=== PATIENT | female | born 1990 | race American Indian/Alaskan Native ===

== ENCOUNTER 2016-05-22 10:32 | Outpatient (CLI) | payer BC, MEDICAID | END 2016-05-22 10:33 | disposition home or self-care (01) | DX: E10.9 Type 1 diabetes mellitus without complications (principal) ==

== ENCOUNTER 2016-11-19 15:08 | Outpatient (CLI) | payer BC ==
[2016-11-19 12:48] LABS: ALBUMIN/GLOBULIN RATIO 1.3 (1.0-2.2); BASOPHILS # (AUTO) 0.1 10^3/uL (0.0-0.1); BASOPHILS % (AUTO) 1.4 %; BUN - BLOOD UREA NITROGEN 14 mg/dL (6-20); CALCIUM 8.8 mg/dL (8.5-10.3); CARBON DIOXIDE - CO2 28 mmol/L (21-32); CHLORIDE 103 mmol/L (101-111); CHOL/HDL RATIO 2.9 (<4.4); CHOLESTEROL 141 mg/dL; CREATININE 0.4 mg/dL (0.4-1.0); EOSINOPHILS # (AUTO) 0.1 10^3/uL (0.0-0.7); EOSINOPHILS % (AUTO) 1.3 %; GFR - MDRD 191 (>89); GLUCOSE 148 mg/dL (70-100); HCT - HEMATOCRIT 39.2 % (37.0-47.0); HDL CHOLESTEROL 48 mg/dL; HGB - HEMOGLOBIN 13.3 g/dL (12.0-16.0); LDL/HDL RATIO 1.8 (<4.4); LYMPHOCYTES # (AUTO) 2.3 10^3/uL (1.5-3.5); LYMPHOCYTES % (AUTO) 38.2 %; MEAN CORPUSCULAR HEMOGLOBIN 30.5 pg (27.0-31.0); MEAN CORPUSCULAR VOLUME 89.5 fL (81.0-99.0); MEAN PLATELET VOLUME 9.7 fL (7.9-10.8); MONOCYTES # (AUTO) 0.3 10^3/uL (0.0-1.0); MONOCYTES % (AUTO) 5.7 %; NEUTROPHILS # (AUTO) 3.2 10^3/uL (1.5-6.6); NEUTROPHILS % (AUTO) 53.4 %; NUCLEATED RED BLOOD CELLS AUTO 0.1 /100WBC; POTASSIUM 4.1 mmol/L (3.5-5.0); RED BLOOD COUNT 4.37 10^6/uL (4.20-5.40); RED CELL DISTRIBUTION WIDTH 12.6 % (12.0-15.0); SODIUM 137 mmol/L (135-145); TOTAL PROTEIN 7.2 g/dL (6.7-8.2); TRIGLYCERIDES 45 mg/dL; VLDL CHOLESTEROL 9 mg/dL
[2016-11-19 12:51] LABS: HEMOGLOBIN A1C 0.64 g/dL
== END 2016-11-19 15:09 | disposition home or self-care (01) ==
LOC: LAB.WCP 15:08
PROVIDERS: ATTEND Family Medicine
DX: Z00.00 Encounter for general adult medical examination without abnormal findings (principal)
CPT/HCPCS: 36415; 80053; 80061; 83036; 84443; 85025

== ENCOUNTER 2017-03-01 08:02 | Outpatient (CLI) | payer BC ==
[2017-03-01 14:13] LABS: HEMOGLOBIN A1C 0.64 g/dL
[2017-03-01 14:19] LABS: ALBUMIN/GLOBULIN RATIO 1.4 (1.0-2.2); BILIRUBIN,TOTAL 1.1 mg/dL (0.2-1.0); CALCIUM 8.9 mg/dL (8.5-10.3); CREATININE 0.6 mg/dL (0.4-1.0); POTASSIUM 4.2 mmol/L (3.5-5.0); TOTAL PROTEIN 7.4 g/dL (6.7-8.2)
== END 2017-03-01 08:03 | disposition home or self-care (01) ==
LOC: LAB.WCP 08:02
PROVIDERS: ATTEND Family Medicine
DX: E10.9 Type 1 diabetes mellitus without complications (principal)
CPT/HCPCS: 36415; 80053; 83036

== ENCOUNTER 2017-06-16 11:14 | Outpatient (CLI) | payer BC | END 2017-06-16 11:15 | disposition home or self-care (01) | LOC: DI 11:14 | PROVIDERS: ATTEND Family Medicine | DX: R00.0 Tachycardia, unspecified (principal) | CPT/HCPCS: 93306 ==

== ENCOUNTER 2018-01-01 07:28 | Outpatient (CLI) | payer BC ==
[2018-01-01 12:55] LABS: HB2 TOTAL 14.7 g/dL; HEMOGLOBIN A1C 0.77 g/dL; HEMOGLOBIN A1C % 6.9 % (4.6-6.2)
[2018-01-01 13:05] LABS: ALBUMIN/GLOBULIN RATIO 1.2 (1.0-2.2); BILIRUBIN,TOTAL 0.8 mg/dL (0.2-1.0); CALCIUM 8.8 mg/dL (8.5-10.3); CREATININE 0.5 mg/dL (0.4-1.0); TOTAL PROTEIN 7.3 g/dL (6.7-8.2)
== END 2018-01-01 07:29 | disposition home or self-care (01) ==
LOC: LAB.WCP 07:28
PROVIDERS: ATTEND Family Medicine
DX: E10.9 Type 1 diabetes mellitus without complications (principal)
CPT/HCPCS: 36415; 80053; 82043; 83036

== ENCOUNTER 2018-08-27 08:00 | Outpatient (CLI) | payer BC ==
[2018-08-27 13:19] LABS: ALBUMIN 4.3 g/dL (3.2-5.5); ALBUMIN/GLOBULIN RATIO 1.3 (1.0-2.2); BILIRUBIN,TOTAL 1.5 mg/dL (0.2-1.0); CALCIUM 8.7 mg/dL (8.5-10.3); CREATININE 0.4 mg/dL (0.4-1.0); TOTAL PROTEIN 7.7 g/dL (6.7-8.2)
[2018-08-27 13:35] LABS: HEMOGLOBIN A1C 0.71 g/dL; HEMOGLOBIN A1C % 6.5 % (4.6-6.2)
== END 2018-08-27 23:59 | disposition home or self-care (01) ==
LOC: LAB.WCP 08:00
PROVIDERS: ATTEND Family Medicine
DX: E10.9 Type 1 diabetes mellitus without complications (principal)
CPT/HCPCS: 36415; 80053; 83036; 84443

== ENCOUNTER 2018-09-04 08:00 | Outpatient (CLI) | payer BC | END 2018-09-04 23:59 | disposition home or self-care (01) | LOC: LAB.WCP 08:00 | PROVIDERS: ATTEND Family Medicine | DX: Z13.89 Encounter for screening for other disorder (principal) | CPT/HCPCS: 36415; 86762 ==

== ENCOUNTER 2019-06-04 08:13 | Outpatient (CLI) | payer BC ==
[2019-06-04 12:32] LABS: ALBUMIN 3.9 g/dL (3.2-5.5); ALBUMIN/GLOBULIN RATIO 1.1 (1.0-2.2); BILIRUBIN,TOTAL 1.1 mg/dL (0.2-1.0); CALCIUM 8.7 mg/dL (8.5-10.3); CREATININE 0.6 mg/dL (0.4-1.0); HB2 TOTAL 13.7 g/dL; HEMOGLOBIN A1C 0.71 g/dL; HEMOGLOBIN A1C % 6.9 % (4.6-6.2); TOTAL PROTEIN 7.3 g/dL (6.7-8.2)
[2019-06-04 12:44] LABS: CREATININE,URINE 115.5 mg/dL; MICROALBUM/CREATININE RATIO,UR 2.6 ug/mg (<30.0); MICROALBUMIN,URINE 0.3 mg/dL (0-300.0)
[2019-06-04 12:56] LABS: BASOPHILS # (AUTO) 0.1 10^3/uL (0.0-0.1); BASOPHILS % (AUTO) 0.9 %; EOSINOPHILS % (AUTO) 0.7 %; HGB - HEMOGLOBIN 13.3 g/dL (12.0-16.0); LYMPHOCYTES # (AUTO) 1.6 10^3/uL (1.5-3.5); LYMPHOCYTES % (AUTO) 29.2 %; MEAN CORPUSCULAR HGB CONC 32.8 g/dL (32.0-36.0); MEAN CORPUSCULAR VOLUME 91.6 fL (81.0-99.0); MEAN PLATELET VOLUME 11.3 fL (7.9-10.8); MONOCYTES # (AUTO) 0.3 10^3/uL (0.0-1.0); MONOCYTES % (AUTO) 5.6 %; NEUTROPHILS # (AUTO) 3.5 10^3/uL (1.5-6.6); NEUTROPHILS % (AUTO) 63.2 %; PLT - PLATELET COUNT 225 10^3/uL (130-450); RED BLOOD COUNT 4.43 10^6/uL (4.20-5.40); RED CELL DISTRIBUTION WIDTH 12.3 % (12.0-15.0); WHITE BLOOD COUNT 5.6 x10^3/uL (4.8-10.8)
== END 2019-06-04 23:59 | disposition home or self-care (01) ==
LOC: LAB.WCP 08:13
PROVIDERS: ATTEND Physician Assistant
DX: Z00.00 Encounter for general adult medical examination without abnormal findings (principal); E10.9 Type 1 diabetes mellitus without complications
CPT/HCPCS: 36415; 80053; 82043; 82570; 83036; 84443; 85025

== ENCOUNTER 2019-12-03 07:38 | Outpatient (CLI) | payer BC ==
[2019-12-03 12:21] LABS: ALBUMIN 4.1 g/dL (3.2-5.5); ALBUMIN/GLOBULIN RATIO 1.4 (1.0-2.2); ALKALINE PHOSPHATASE 39 IU/L (42-121); ALT ALANINE AMINOTRANSFERASE 16 IU/L (10-60); AST ASPARTATE AMINOTRANSFERASE 18 IU/L (10-42); BUN - BLOOD UREA NITROGEN 12 mg/dL (6-20); CARBON DIOXIDE - CO2 26 mmol/L (21-32); CHLORIDE 98 mmol/L (101-111); CHOL/HDL RATIO 3.4 (<4.4); CHOLESTEROL 172 mg/dL; CREATININE 0.5 mg/dL (0.4-1.0); GLUCOSE 216 mg/dL (70-100); HDL CHOLESTEROL 50 mg/dL; LDL CHOLESTEROL,CALCULATED 101 mg/dL; SODIUM 134 mmol/L (135-145); TOTAL PROTEIN 7.1 g/dL (6.7-8.2); VLDL CHOLESTEROL 21 mg/dL
[2019-12-03 12:48] LABS: HB2 TOTAL 14.1 g/dL; HEMOGLOBIN A1C 0.99 g/dL; HEMOGLOBIN A1C % 8.6 % (4.6-6.2)
== END 2019-12-03 23:59 | disposition home or self-care (01) ==
LOC: LAB.WCP 07:38
PROVIDERS: ATTEND Physician Assistant
DX: E10.9 Type 1 diabetes mellitus without complications (principal)
CPT/HCPCS: 36415; 80053; 80061; 83036; 83721

== ENCOUNTER 2020-03-08 08:48 | Outpatient (CLI) | payer BC ==
[2020-03-08 13:46] LABS: HEMOGLOBIN A1c% 6.9 % (4.27-6.07)
== END 2020-03-08 23:59 | disposition home or self-care (01) ==
LOC: LAB.WCP 08:48
PROVIDERS: ATTEND Physician Assistant
DX: E10.9 Type 1 diabetes mellitus without complications (principal)
CPT/HCPCS: 36415; 83036

== ENCOUNTER 2020-05-16 07:38 | Outpatient (CLI) | payer BC | END 2020-05-16 23:59 | disposition home or self-care (01) | LOC: LAB.WCP 07:38 | PROVIDERS: ATTEND Physician Assistant Medical | DX: Z33.1 Pregnant state, incidental (principal) | CPT/HCPCS: 36415; 84702 ==

== ENCOUNTER → 2020-05-25 | Outpatient (CLI) | payer BC ==
[2020-05-26 13:28] LABS: BILIRUBIN,URINE NEGATIVE (NEGATIVE); GLUCOSE, URINE (UA) NEGATIVE (NEGATIVE); KETONES,URINE (UA) NEGATIVE (NEGATIVE); LEUKOCYTE ESTERASE, URINE NEGATIVE (NEGATIVE); NITRITE,URINE NEGATIVE (NEGATIVE); OCCULT BLOOD,URINE NEGATIVE (NEGATIVE); PH,URINE 6.5 PH (5.0-7.5); PROTEIN,URINE NEGATIVE (NEGATIVE); UROBILINOGEN,URINE 0.2 (NORMAL) E.U./dL (NORMAL)
[2020-05-26 13:38] LABS: CLARITY,URINE CLEAR (CLEAR)
[2020-05-26 13:39] LABS: BACTERIA,URINE Rare /HPF (None Seen); RBC,URINE None Seen /HPF (0-5); SQUAMOUS EPITHELIAL CELL,UR FEW Squamous (<= Few)
--- OUTSIDE RECORDS SUMMARY | 2020-06-01 10:56 | EXTERNAL MEDICAL SUMMARY RPT | Continuity of Care Document ---
:1990 Demographics Phone Unavailable Preferred Language Romansh Marital Status Unknown [facility] Affiliation Unknown Race Unknown Ethnic Group Unknown Author Organization [place] Address [address] [phone] Phone Care Team Providers Name Role Phone MARY Unavailable Unavailable Holiday Unavailable Unavailable Problems date description facility 2020-03-08 00:00 TYPE 1 DIABETES MELLITUS [facility] WITHOUT COMPLICATIONS 2020-03-08 08:48 TYPE 1 DIABETES MELLITUS [facility] WITHOUT COMPLICATIONS 2020-03-11 00:00:00 Encounter for other general [facility] counseling and advice on [place] [facility] contraceptive management 2020-03-11 00:00:00 THIN PREP PAP with HPV 30+YRS [facility] OLD [place] [facility] 2020-03-11 00:00:00 Encounter for contraceptive [facility] management, unspecified [place] [facility] 2020-03-11 00:00:00 Health-related behavior [facility] [place] [facility] 2020-03-11 00:00:00 Tobacco use and exposure [facility] [place] [facility] 2020-03-11 00:00:00 [facility] [place] [facility] 2020-03-11 00:00:00 [facility] 2020-03-11 00:00:00 Contraception care management [facility] [place] [facility] 2020-03-11 00:00:00 Alcohol use [facility] [place] [facility] 2020-03-11 00:00:00 Tobacco smoking status NHIS [facility] [place] [facility] 2020-05-12 00:00:00 examination or test, [facility] positive result [place] [facility] 2020-05-12 00:00:00 hCG, Serum, [facility] [place] [facility] 2020-05-12 00:00:00 Encounter for test, [facility] result positive [place] [facility] 2020-05-12 00:00:00 state, incidental [facility] [place] [facility] 2020-05-12 00:00:00 test positive [facility] [place] [facility] 2020-05-12 00:00:00 [facility] [place] [facility] 2020-05-16 00:00 STATE, INCIDENTAL [facility] 2020-05-16 07:38 STATE, INCIDENTAL [facility] 2020-05-25 00:00:00 US OB <14 WEEKS [facility] [place] [facility] 2020-05-25 00:00:00 US TRANSVAGINAL, OB [facility] [place] [facility] 2020-05-25 00:00:00 Urinalysis with Microscopic [facility] Exam, Culture in Indicated [place] [facility] 2020-05-25 00:00:00 HGBA1C [facility] [place] [facility] 2020-05-25 00:00:00 TSH [facility] [place] [facility] 2020-05-25 00:00:00 Health-related behavior [facility] [place] [facility] 2020-05-25 00:00:00 Tobacco use and exposure [facility] [place] [facility] 2020-05-25 00:00:00 Exercise [facility] [place] [facility] 2020-05-25 00:00:00 Never smoker [facility] [place] [facility] 2020-05-25 00:00:00 Employment detail [facility] [place] [facility] 2020-05-25 00:00:00 Alcohol use [facility] [place] [facility] 2020-05-25 00:00:00 Tobacco smoking status NHIS [facility] [place] [facility] 2020-05-26 00:00 ENCOUNTER FOR TEST, [facility] RESULT POSITIVE Allergies date description facility PIPERACILLIN-TAZOBACTAM [facility] penicillin * [facility] sulf[facility] drug [facility] No known allergies [facility] [place] PERTUSSIS VACCINE,ADSORBED [facility] No Known Medication Allergies [facility] HCl * [facility] oxycodone terephthalate * [facility] Penicillins [facility] aspirin [facility] clarithromycin [facility] shellfish derived [facility] Medications date description facility 2020-05-25 00:00:00 [facility] [place] [facility] 2020-05-25 00:00:00 [facility] [place] [facility] 2020-05-25 00:00:00 [id number] [facility] [place] [facility] Procedures date description facility 2020-03-11 00:00:00 IUD REMOVAL [facility] Prim [facility] [place] [facility] date description facility 2020-03-11 00:00:00 THIN PREP PAP with HPV 30+YRS [facility] [place] [facility] date description facility 2020-03-11 00:00[facility] [place] [facility] date description facility 2020-05-12 00:00:00 hCG, Serum, Quantitative [facility] [place] [facility] date description facility 2020-05-12 00:00:[facility] [place] [facility] date description facility 2020-05-25 00:00:00 Urinalysis with Microscopic [facility] Exam, Culture in Indicated [place] [facility] date description facility 2020-05-25 00:00:00 POC CHORIONIC GONADOTROPIN [facility] ASSAY [place] [facility] date description facility 2020-05-25 00:00:00 [facility] [place] [facility] Results Social History date description facility 2020-03-11 00:00:00 Never smoker [facility] [place] [facility] date description facility 2020-05-25 00:00:00 Never smoker [facility] [place] [facility] Social History date description facility 2020-03-11 00:00:00 Never smoker [facility] [place] [facility] date description facility 2020-05-25 00:00:00 Never smoker [facility] [place] [facility] date description facility [id number]
== END ==
LOC: LAB.R 08:00
PROVIDERS: ATTEND Obstetrics & Gynecology
DX: Z32.01 Encounter for pregnancy test, result positive (principal)
CPT/HCPCS: 81001; 87086

== ENCOUNTER 2020-06-02 14:31 | Outpatient (CLI) | payer BC ==
--- NOTE | 2020-06-02 16:39 | Ultrasound Report ---
PROCEDURE: OB First Trimester w/TV INDICATIONS: POSITIVE TEST OUTSIDE/PRIOR DATING DATA: Last menstrual period (LMP): 04/01/2020. LMP-based estimated date of delivery (ETHAN): 01/06/2021. First dating scan (date and location): 06/01/2020. Estimated date of delivery (ETHAN) from first dating scan: 01/26/2021. TECHNIQUE: Real-time scanning was performed of the fetus and maternal pelvic organs, with image documentation. Endovaginal scanning was also performed to better visualize the fetus and maternal ovaries. COMPARISON: None FINDINGS: Embryo: There is a gestational sac in the uterine fundus measuring approximately 2.3 cm in mean sac diameter. Within the gestational sac there is is an embryo with a crown-rump length of 4 mm. Estimate d gestational age based on the embryo length is 6 weeks 0 days. Estimated gestational age based on th e gestational sac is 7 weeks 2 days. heart rate is detected at 92 bpm. Measurement variability in dating: +/- 4 weeks by LMP, +/- 7 days by mean sac diameter (use before 6 weeks gestation if crown-rump length not able to be measured), +/- 5 days by crown-rump length (6-12 weeks gestation). Maternal organs: Ovaries within normal limits. Limited images through the kidneys demonstrate no hy dronephrosis. IMPRESSION: Single live intrauterine gestation with estimated age of 6 weeks 0 days. heart rates are detect ed at 92 bpm which is lower than expected for this gestational age. Consider a repeat examination to reassess heart rate. Reviewed by: Obey Farah MD on 06/02/2020 4:37 PM PST Approved by: Obey Farah MD on 06/02/2020 4:37 PM PST Station ID: [id number]
== END 2020-06-02 14:32 | disposition home or self-care (01) ==
LOC: DI 14:31
PROVIDERS: ATTEND Obstetrics & Gynecology
DX: Z32.01 Encounter for pregnancy test, result positive (principal)

== ENCOUNTER 2020-06-09 08:00 | Outpatient (CLI) | payer BC ==
[2020-06-09 14:05] LABS: HEMOGLOBIN A1c% 5.9 % (4.27-6.07)
== END 2020-06-09 08:01 | disposition home or self-care (01) ==
LOC: LAB.WCP 08:00
PROVIDERS: ATTEND Obstetrics & Gynecology
DX: E10.9 Type 1 diabetes mellitus without complications (principal)
CPT/HCPCS: 36415; 83036; 84443

== ENCOUNTER 2020-06-19 19:31 | Outpatient (CLI) | payer BC | END 2020-06-19 19:32 | disposition critical access hospital (66) | LOC: EMS 19:31 | PROVIDERS: ATTEND Surgery | DX: O20.9 Hemorrhage in early pregnancy, unspecified (principal); O99.891 Other specified diseases and conditions complicating pregnancy; R42 Dizziness and giddiness; R53.1 Weakness; R11.0 Nausea; R25.2 Cramp and spasm; Z3A.01 Less than 8 weeks gestation of pregnancy | CPT/HCPCS: A0425; A0427 ==

== ENCOUNTER 2020-06-19 19:50 | Emergency (ER) | payer BC ==
[2020-06-19 20:47] LABS: BASOPHILS # (AUTO) 0.1 10^3/uL (0.0-0.1); BASOPHILS % (AUTO) 0.7 %; EOSINOPHILS # (AUTO) 0.1 10^3/uL (0.0-0.7); EOSINOPHILS % (AUTO) 1.2 %; HGB - HEMOGLOBIN 9.2 g/dL (12.0-16.0); LYMPHOCYTES # (AUTO) 1.1 10^3/uL (1.5-3.5); LYMPHOCYTES % (AUTO) 12.7 %; MEAN CORPUSCULAR HEMOGLOBIN 31.2 pg (27.0-31.0); MEAN CORPUSCULAR HGB CONC 33.5 g/dL (32.0-36.0); MEAN CORPUSCULAR VOLUME 93.2 fL (81.0-99.0); MEAN PLATELET VOLUME 10.3 fL (7.9-10.8); MONOCYTES # (AUTO) 0.4 10^3/uL (0.0-1.0); MONOCYTES % (AUTO) 4.9 %; NEUTROPHILS # (AUTO) 6.7 10^3/uL (1.5-6.6); NEUTROPHILS % (AUTO) 80.1 %; PLT - PLATELET COUNT 177 10^3/uL (130-450); RED BLOOD COUNT 2.95 10^6/uL (4.20-5.40); WHITE BLOOD COUNT 8.3 x10^3/uL (4.8-10.8)
[2020-06-19 21:01] LABS: ALBUMIN 3.3 g/dL (3.2-5.5); ALBUMIN/GLOBULIN RATIO 1.3 (1.0-2.2); CALCIUM 7.9 mg/dL (8.5-10.3); CREATININE 0.4 mg/dL (0.4-1.0); TOTAL PROTEIN 5.8 g/dL (6.7-8.2)
[2020-06-19 21:02] LABS: INR 1.3 (0.8-1.2); PT - PROTHROMBIN TIME 14.3 secs (9.9-12.6)
[2020-06-19 21:10] LABS: PARTIAL THROMBOPLASTIN TIME 24.8 secs (24.9-33.3)
[2020-06-19] MEDS ORDERED: ACETAMINOPHEN 325 MG TABLET PO STA (21:51)
--- NOTE | 2020-06-19 21:54 | ED Physician Documentation ---
PD HPI ABD PAIN - Stated complaint Stated Complaint: ABD PX - Chief complaint Chief Complaint: Abd Pain - History obtained from History obtained from: Patient - Treatment prior to arrival Treatment prior to arrival: 30-year-old G3, P1 at estimated 7 weeks gestation by dates, also with history of diabetes p/w vaginal bleeding starting at 3 PM today and passage of large clots with cramping mild constant nonradiating lower abdominal pain radiating to the groin. Patient denies urinary symptoms, fevers, discharge. she states she had u/s by OB Dr. Ferreira earlier in week showing no heart tones. Review of Systems Ten Systems: 10 systems reviewed and negative Constitutional: denies: Fever, Chills GI: reports: Abdominal Pain. denies: Nausea, Vomiting : reports: Vaginal bleeding. denies: Dysuria Neurologic: reports: Generalized weakness, Other (dizziness) PD PAST MEDICAL HISTORY - Past Medical History Past Medical History: No Cardiovascular: Other Endocrine/Autoimmune: Type 1 diabetes Other Past Medical History: Rapid HR - Past Surgical History Past Surgical History: Yes General: Cholecystectomy HEENT: Other - Present Medications Home Medications: Ambulatory Orders Medication Instructions Recorded Confirmed Insulin Aspart [NovoLOG] 5 units SUBQ TID 06/19/20 06/19/20 Levemir 16 units SUBQ QPM 06/19/20 Metoprolol Tartrate [Lopressor] 25 mg PO DAILY 06/19/20 06/19/20 - Allergies Allergies/Adverse Reactions: Allergies Allergy/AdvReac Type Severity Reaction Status Date / Time penicillin * [penicillin] Allergy Intermediate Rash Verified 06/19/20 20:08 - Social History Does the pt smoke?: No Smoking Status: Never smoker Does the pt drink ETOH?: No Does the pt have substance abuse?: No - Immunizations Immunizations are current?: Yes - POLST Patient has POLST: No PD ED PE NORMAL - Vitals Vital signs reviewed: Yes - General General: Alert and oriented X 3, No acute distress, Well developed/nourished - HEENT HEENT: Atraumatic, PERRL, EOMI, Moist mucous membranes - Neck Neck: Supple, no meningeal sign - Cardiac Cardiac: RRR - Respiratory Respiratory: No respiratory distress, Clear bilaterally - Abdomen Abdomen: Non tender, Non distended, Other (discomfort to suprapubic palpation) - Female Female : Other (external vaginal exam with small amount of light red blood) - Rectal Rectal: Deferred - Back Back: No CVA TTP - Derm Derm: Normal color - Extremities Extremities: No deformity, No edema - Neuro Neuro: Alert and oriented X 3, online project manager 2-12 intact, No motor deficit, No sensory deficit - Psych Psych: Normal mood, Normal affect Results - Vitals Vitals: Vital Signs - 24 hr 06/19/20 06/19/20 06/19/20 20:00 20:04 20:05 Temperature 36.9 C Heart Rate 93 86 Heart Rate [ 88 Sitting] Heart Rate [ 93 Supine] Respiratory 14 15 Rate Blood Pressure 112/75 123/80 Blood Pressure 123/80 [Sitting] Blood Pressure 112/75 [Supine] O2 Saturation 100 100 06/19/20 06/19/20 06/19/20 20:10 20:40 21:52 Temperature Heart Rate 95 92 92 Heart Rate [ Sitting] Heart Rate [ Supine] Respiratory 15 15 16 Rate Blood Pressure 123/8 L 100/73 109/66 Blood Pressure [Sitting] Blood Pressure [Supine] O2 Saturation 100 100 100 06/19/20 06/19/20 06/19/20 22:38 23:10 23:25 Temperature 36.9 C 36.5 C Heart Rate 92 86 86 Heart Rate [ Sitting] Heart Rate [ Supine] Respiratory 14 14 16 Rate Blood Pressure 124/68 110/68 118/71 Blood Pressure [Sitting] Blood Pressure [Supine] O2 Saturation 100 100 100 06/19/20 23:56 Temperature 36.7 C Heart Rate 87 Heart Rate [ Sitting] Heart Rate [ Supine] Respiratory 15 Rate Blood Pressure 118/71 Blood Pressure [Sitting] Blood Pressure [Supine] O2 Saturation 100 Oxygen O2 Source Room air - Labs Labs: Laboratory Tests 06/19/20 06/19/20 06/19/20 20:36 20:36 20:36 WBC 8.3 RBC 2.95 L Hgb 9.2 L Hct 27.5 L MCV 93.2 MCH 31.2 H MCHC 33.5 RDW 12.0 Plt Count 177 MPV 10.3 Neut # (Auto) 6.7 H Lymph # (Auto) 1.1 L Leon # (Auto) 0.4 Eos # (Auto) 0.1 Baso # (Auto) 0.1 Absolute Nucleated RBC 0.00 Nucleated RBC % 0.0 PT INR APTT Sodium 130 L Potassium 3.7 Chloride 99 L Carbon Dioxide 23 Anion Gap 8.0 BUN 8 Creatinine 0.4 Estimated GFR (MDRD) 186 Glucose 208 H Calcium 7.9 L Total Bilirubin 1.0 AST 15 ALT 10 Alkaline Phosphatase 23 L Total Protein 5.8 L Albumin 3.3 Globulin 2.5 Albumin/Globulin Ratio 1.3 Lipase 19 L HCG, Quant Urine Color Urine Clarity Urine pH Ur Specific [place] Urine Protein Urine Glucose (UA) Urine Ketones Urine Occult Blood Urine Nitrite Urine Bilirubin Urine Urobilinogen Ur Leukocyte Esterase Urine RBC Urine WBC Ur Squamous Epith Cells Urine Bacteria Urine Mucus Ur Microscopic Review Urine Culture Comments Blood Type AB POSITIVE Antibody Screen NEGATIVE 06/19/20 06/19/20 06/19/20 20:36 20:36 22:04 WBC RBC Hgb Hct MCV MCH MCHC RDW Plt Count MPV Neut # (Auto) Lymph # (Auto) Leon # (Auto) Eos # (Auto) Baso # (Auto) Absolute Nucleated RBC Nucleated RBC % PT 14.3 H INR 1.3 H APTT 24.8 L Sodium Potassium Chloride Carbon Dioxide Anion Gap BUN Creatinine Estimated GFR (MDRD) Glucose Calcium Total Bilirubin AST ALT Alkaline Phosphatase Total Protein Albumin Globulin Albumin/Globulin Ratio Lipase HCG, Quant 911.43 Urine Color YELLOW Urine Clarity CLEAR Urine pH 6.0 Ur Specific [place] 1.015 Urine Protein NEGATIVE Urine Glucose (UA) NEGATIVE Urine Ketones >=80 H Urine Occult Blood LARGE H Urine Nitrite NEGATIVE Urine Bilirubin NEGATIVE Urine Urobilinogen 0.2 (NORMAL) Ur Leukocyte Esterase NEGATIVE Urine RBC TNTC H Urine WBC 0-3 Ur Squamous Epith Cells RARE Squamous Urine Bacteria Rare Urine Mucus Few Strands Ur Microscopic Review INDICATED Urine Culture Comments NOT INDICATED Blood Type Antibody Screen PD MEDICAL DECISION MAKING - ED course ED course: 30-year-old diabetic woman G3, P1 currently at estimated 7 weeks gestation by dates presents with vaginal bleeding starting at 3 PM today and passage of large clots with cramping mild constant nonradiating lower abdominal pain radiating to the groin. Patient denies urinary symptoms, fevers, discharge. Unsure of her blood type. On examination she has a soft nontender abdomen and no CVA tenderness, external vaginal exam with small amount of blood. OB ultrasound showed no retained products of conception and a large amount of apparent embryonic tissue was removed from the vaginal vault upon completion of transvaginal ultrasound. Completed at this time. hCG downtrending. Hemoglobin dropped from 13.3-9.2. Will discuss with Dr. Ferreira, patient's OB. Blood pressure holding steady in the 110s and patient is asymptomatic at this time. patient without further bleeding after passage of large amount of tissue after ultrasound. d/w Dr. Centeno, guest relations officer for ob - patient with improvement in BP, asymptomatic at present. given that there is possible small amount of retained tissue still on ultrasound, plan to give 600mcg misoprostol prior to discharge. strict bleeding precautions and ob return precautions given. Patient will f/u for appointment in clinic tomorrow. Note that patient felt nauseous and had one episode nbnb n/v after misoprostol, improving with zofran odt. patient was monitored and subsequently felt better, requesting to go home. return precautions again reinforced. shared decision made to go forward with discharge at this time. Departure - Departure Disposition: 01 Home, Self Care Clinical Impression: Spontaneous , Vaginal bleeding, Abdominal cramping Condition: Good Instructions: Miscarriage Emotions, Miscarriage Dc Follow-Up: Kristyn Ferreira MD [Provider Admit Priv/Credential] - Comments: You were seen in the emergency department for miscarriage. You were given misoprostol, a medication to help clean your uterus of leftover tissues. Return to the emergency department immediately if you are having heavy bleeding (soaking >1pad every couple hours), fevers, or severe pain. Return for any new or worsening symptoms or other concerns. Follow-up tomorrow for a clinic appointment with your OB Dr. Ferreira. Discharge Date/Time: 06/19/20 23:58
--- NOTE | 2020-06-19 21:59 | Ultrasound Report ---
PROCEDURE: OB First Trimester w/TV INDICATIONS: vag bleeding OUTSIDE/PRIOR DATING DATA: Last menstrual period (LMP): 04/01/2020. LMP-based estimated date of delivery (ETHAN): 01/06/2021. First dating scan (date and location): 06/01/2020. Estimated date of delivery (ETHAN) from first dating scan: 01/26/2021 TECHNIQUE: Real-time scanning was performed of the fetus and maternal pelvic organs, with image documentation. Endovaginal scanning was also performed to better visualize the fetus and maternal ovaries. COMPARISON: 06/02/2020 ultrasound. FINDINGS: Echogenic material within the endometrium is present, which measures 16 mm in thickness. No evidence of intrauterine gestation. Small cystic focus within the endometrium measuring 34 mm. Mat ernal ovaries are within normal limits. Small amount of free fluid adjacent to uterine fundus. IMPRESSION: demise. No intrauterine gestation. Reviewed by: Edie Guevara MD on 06/19/2020 9:58 PM PST Approved by: Edie Guevara MD on 06/19/2020 9:58 PM PST Station ID: [id number]
[2020-06-19 22:13] LABS: BILIRUBIN,URINE NEGATIVE (NEGATIVE); GLUCOSE, URINE (UA) NEGATIVE (NEGATIVE); KETONES,URINE (UA) >=80 mg/dL (NEGATIVE); LEUKOCYTE ESTERASE, URINE NEGATIVE (NEGATIVE); NITRITE,URINE NEGATIVE (NEGATIVE); OCCULT BLOOD,URINE LARGE (NEGATIVE); PROTEIN,URINE NEGATIVE (NEGATIVE); UROBILINOGEN,URINE 0.2 (NORMAL) E.U./dL (NORMAL)
[2020-06-19 22:21] LABS: CLARITY,URINE CLEAR (CLEAR)
[2020-06-19 22:22] LABS: BACTERIA,URINE Rare /HPF (None Seen); MUCUS,URINE Few Strands; RBC,URINE TNTC /HPF (0-5); SQUAMOUS EPITHELIAL CELL,UR RARE Squamous (<= Few)
[2020-06-19] MEDS ORDERED: miSOPROStoL 200 MCG TABLET PO STA (23:13)
[2020-06-19] MEDS ORDERED: ONDANSETRON ODT 4 MG TABLET TL STA (23:35)
[2020-06-19 23:42] VITALS: BP 118/71
== END 2020-06-19 23:58 | disposition home or self-care (01) ==
LOC: EDUNIT# → ED 19:50 → SUPCPDRO 19:50 → ED 23:57
DX: O03.9 Complete or unspecified spontaneous abortion without complication (principal); R11.2 Nausea with vomiting, unspecified; T47.1X5A Adverse effect of other antacids and anti-gastric-secretion drugs, initial encounter; Y92.538 Other ambulatory health services establishments as the place of occurrence of the external cause; E10.9 Type 1 diabetes mellitus without complications
CPT/HCPCS: 36415; 76801; 76817; 80053; 81001; 83690; 84702; 85025; 85610; 85730; 86850; 86900; 86901; 99284; A9270; Q0162; 81003; 87086

== ENCOUNTER 2020-12-14 08:00 | Outpatient (CLI) | payer BC ==
[2020-12-14 11:56] LABS: BASOPHILS # (AUTO) 0.1 10^3/uL (0.0-0.1); BASOPHILS % (AUTO) 1.1 %; EOSINOPHILS # (AUTO) 0.1 10^3/uL (0.0-0.7); EOSINOPHILS % (AUTO) 1.6 %; HCT - HEMATOCRIT 40.3 % (37.0-47.0); LYMPHOCYTES # (AUTO) 2.1 10^3/uL (1.5-3.5); LYMPHOCYTES % (AUTO) 32.6 %; MEAN CORPUSCULAR HEMOGLOBIN 29.5 pg (27.0-31.0); MEAN CORPUSCULAR HGB CONC 32.3 g/dL (32.0-36.0); MEAN CORPUSCULAR VOLUME 91.4 fL (81.0-99.0); MEAN PLATELET VOLUME 11.3 fL (7.9-10.8); MONOCYTES # (AUTO) 0.4 10^3/uL (0.0-1.0); MONOCYTES % (AUTO) 5.9 %; NEUTROPHILS # (AUTO) 3.7 10^3/uL (1.5-6.6); NEUTROPHILS % (AUTO) 58.5 %; PLT - PLATELET COUNT 232 10^3/uL (130-450); RED BLOOD COUNT 4.41 10^6/uL (4.20-5.40); RED CELL DISTRIBUTION WIDTH 12.5 % (12.0-15.0); WHITE BLOOD COUNT 6.3 x10^3/uL (4.8-10.8)
[2020-12-14 12:10] LABS: CREATININE,URINE 118.2 mg/dL; MICROALBUM/CREATININE RATIO,UR 3.4 ug/mg (<30.0); MICROALBUMIN,URINE 0.4 mg/dL (0-300.0)
[2020-12-14 12:18] LABS: ESTIMATED AVERAGE GLUCOSE 131 mg/dL (70-100); HEMOGLOBIN A1c% 6.2 % (4.27-6.07)
[2020-12-14 12:24] LABS: THYROID STIMULATING HORMONE 2.93 uIU/mL (0.34-5.60)
[2020-12-14 12:27] LABS: ALBUMIN 4.3 g/dL (3.2-5.5); ALBUMIN/GLOBULIN RATIO 1.3 (1.0-2.2); ALKALINE PHOSPHATASE 37 IU/L (42-121); ALT ALANINE AMINOTRANSFERASE 13 IU/L (10-60); AST ASPARTATE AMINOTRANSFERASE 16 IU/L (10-42); BUN - BLOOD UREA NITROGEN 13 mg/dL (6-20); CALCIUM 9.3 mg/dL (8.5-10.3); CARBON DIOXIDE - CO2 24 mmol/L (21-32); CHLORIDE 105 mmol/L (101-111); CHOL/HDL RATIO 3.1 (<4.4); CHOLESTEROL 179 mg/dL; CREATININE 0.6 mg/dL (0.4-1.0); GFR - MDRD 117 (>89); GLUCOSE 121 mg/dL (70-100); HDL CHOLESTEROL 57 mg/dL; LDL CHOLESTEROL,CALCULATED 112 mg/dL; POTASSIUM 4.1 mmol/L (3.5-5.0); SODIUM 137 mmol/L (135-145); TOTAL PROTEIN 7.6 g/dL (6.7-8.2); TRIGLYCERIDES 52 mg/dL; VLDL CHOLESTEROL 10 mg/dL
== END 2020-12-14 23:59 | disposition home or self-care (01) ==
LOC: LAB.WCP 08:00
PROVIDERS: ATTEND Family Medicine
DX: E10.9 Type 1 diabetes mellitus without complications (principal)
CPT/HCPCS: 36415; 80053; 80061; 82043; 82570; 83036; 83721; 84443; 85025

== ENCOUNTER 2021-01-24 08:00 | Outpatient (CLI) | payer BC ==
[2021-01-24 18:10] LABS: HCG,QUALITATIVE BLOOD POSITIVE
== END 2021-01-24 23:59 | disposition home or self-care (01) ==
LOC: LAB.WCP 08:00
PROVIDERS: ATTEND Family Medicine
DX: N91.2 Amenorrhea, unspecified (principal)
CPT/HCPCS: 36415; 84703

== ENCOUNTER 2021-02-10 10:00 | Outpatient (CLI) | payer BC ==
[2021-02-10 17:28] LABS: BILIRUBIN,URINE NEGATIVE (NEGATIVE); GLUCOSE, URINE (UA) NEGATIVE (NEGATIVE); KETONES,URINE (UA) NEGATIVE (NEGATIVE); LEUKOCYTE ESTERASE, URINE SMALL (NEGATIVE); NITRITE,URINE POSITIVE (NEGATIVE); OCCULT BLOOD,URINE NEGATIVE (NEGATIVE); PROTEIN,URINE NEGATIVE (NEGATIVE); UROBILINOGEN,URINE 0.2 (NORMAL) E.U./dL (NORMAL)
[2021-02-10 17:31] LABS: CLARITY,URINE CLEAR (CLEAR)
[2021-02-10 17:33] LABS: BACTERIA,URINE Many /HPF (None Seen); RBC,URINE 0-5 /HPF (0-5); SQUAMOUS EPITHELIAL CELL,UR FEW Squamous (<= Few)
== END 2021-02-10 23:59 | disposition home or self-care (01) ==
LOC: LAB 10:00
PROVIDERS: ATTEND Nurse Practitioner Obstetrics & Gynecology
DX: Z32.01 Encounter for pregnancy test, result positive (principal)
CPT/HCPCS: 81001; 81003; 87086; 87181

== ENCOUNTER 2021-02-20 18:52 | Outpatient (CLI) | payer BC ==
--- NOTE | 2021-02-21 10:57 | Ultrasound Report ---
PROCEDURE: OB First Trimester w/TV INDICATIONS: POSITIVE TEST OUTSIDE/PRIOR DATING DATA: Last menstrual period (LMP): 12/21/2020. LMP-based estimated date of delivery (ETHAN): 09/27/2021. First dating scan (date and location): 02/20/2021. Estimated date of delivery (ETHAN) from first dating scan: 09/27/2021. The below data below was generated using the ultrasound derived ETHAN of 09/27/2021 TECHNIQUE: Real-time scanning was performed of the fetus and maternal pelvic organs, with image documentation. Endovaginal scanning was also performed to better visualize the fetus and maternal ovaries. COMPARISON: None from current . FINDINGS: Embryo: There is an intrauterine with a gestational sac, yolk sac, and pole identifi ed. The crown-rump length measures up to 2.1 cm corresponding to a gestational age of 8 weeks 5 days. There is heart motion with a rate of 176 bpm. There is an adjacent hypoechoic heterogeneous c rescentic collection along the gestational sac measuring approximately 3.2 x 1 x 2.0 cm suggestive of a subchorionic hematoma. Measurement variability in dating: +/- 4 weeks by LMP, +/- 7 days by mean sac diameter (use before 6 weeks gestation if crown-rump length not able to be measured), +/- 5 days by crown-rump length (6-12 weeks gestation). Maternal organs: Ovaries appear within normal size limits with small follicles demonstrated bilatera lly. No adnexal masses.. IMPRESSION: 1. Single living intrauterine with cartilage gestational age of 8 weeks 5 days correspondin g to an estimated delivery date of 09/27/2021, concordant with patient's dates by LMP. 2. Heterogeneous perigestational collection compatible with a subchorionic hematoma. Recommend clinic al follow-up and and a repeat study if indicated. Reviewed by: Sukhdeep Oglesby MD on 02/21/2021 10:56 AM PDT Approved by: Sukhdeep Oglesby MD on 02/21/2021 10:56 AM PDT Station ID: [id number]
== END 2021-02-20 18:53 | disposition home or self-care (01) ==
LOC: DI 18:52
PROVIDERS: ATTEND Nurse Practitioner Obstetrics & Gynecology
DX: O20.9 Hemorrhage in early pregnancy, unspecified (principal); Z3A.08 8 weeks gestation of pregnancy; Z36.89 Encounter for other specified antenatal screening
CPT/HCPCS: 36415; 81001; 85025; 86592; 86762; 86787; 86803; 86850; 86900; 86901; 87086; 87340; 87389

== ENCOUNTER 2021-02-20 19:37 | Outpatient (CLI) | payer BC ==
[2021-02-20 20:04] LABS: BILIRUBIN,URINE NEGATIVE (NEGATIVE); GLUCOSE, URINE (UA) NEGATIVE (NEGATIVE); KETONES,URINE (UA) NEGATIVE (NEGATIVE); LEUKOCYTE ESTERASE, URINE NEGATIVE (NEGATIVE); NITRITE,URINE NEGATIVE (NEGATIVE); OCCULT BLOOD,URINE NEGATIVE (NEGATIVE); PROTEIN,URINE NEGATIVE (NEGATIVE); UROBILINOGEN,URINE 0.2 (NORMAL) E.U./dL (NORMAL)
[2021-02-20 20:05] LABS: BASOPHILS % (AUTO) 0.5 %; EOSINOPHILS # (AUTO) 0.1 10^3/uL (0.0-0.7); EOSINOPHILS % (AUTO) 1.2 %; HCT - HEMATOCRIT 33.6 % (37.0-47.0); HGB - HEMOGLOBIN 11.7 g/dL (12.0-16.0); LYMPHOCYTES # (AUTO) 1.9 10^3/uL (1.5-3.5); LYMPHOCYTES % (AUTO) 23.9 %; MEAN CORPUSCULAR HEMOGLOBIN 30.3 pg (27.0-31.0); MEAN CORPUSCULAR HGB CONC 34.8 g/dL (32.0-36.0); MEAN PLATELET VOLUME 10.5 fL (7.9-10.8); MONOCYTES # (AUTO) 0.5 10^3/uL (0.0-1.0); MONOCYTES % (AUTO) 6.4 %; NEUTROPHILS # (AUTO) 5.3 10^3/uL (1.5-6.6); NEUTROPHILS % (AUTO) 67.5 %; PLT - PLATELET COUNT 235 10^3/uL (130-450); RED BLOOD COUNT 3.86 10^6/uL (4.20-5.40); RED CELL DISTRIBUTION WIDTH 12.8 % (12.0-15.0); WHITE BLOOD COUNT 7.8 x10^3/uL (4.8-10.8)
[2021-02-20 20:13] LABS: BACTERIA,URINE Rare /HPF (None Seen); CLARITY,URINE CLEAR (CLEAR); RBC,URINE 0-5 /HPF (0-5); SQUAMOUS EPITHELIAL CELL,UR RARE Squamous (<= Few); WBC,URINE 0-3 /HPF (0-5)
[2021-02-20 20:14] LABS: MUCUS,URINE Few Strands
[2021-02-23 12:06] LABS: HEPATITIS B SURFACE ANTIGEN NON-REACTIVE (NON-REACTIVE); HEPATITIS C ANTIBODY NON-REACTIVE (NON-REACTIVE)
[2021-02-23 16:01] LABS: HIV AG/AB 4TH GEN NON-REACTIVE (NON-REACTIVE)
== END 2021-02-20 19:38 | disposition home or self-care (01) ==
LOC: LAB 19:37
PROVIDERS: ATTEND Nurse Practitioner Obstetrics & Gynecology
DX: Z36.89 Encounter for other specified antenatal screening (principal)
CPT/HCPCS: 36415; 81001; 85025; 86592; 86762; 86787; 86803; 86850; 86900; 86901; 87086; 87340; 87389

== ENCOUNTER 2021-03-02 08:00 | Outpatient (CLI) | payer BC ==
[2021-03-02 21:55] LABS: CHLAMYDIA TRACHOMATIS DNA NEGATIVE (NEGATIVE); NEISSERIA GONORRHOEAE DNA NEGATIVE (NEGATIVE); TRICHOMONAS VAGINALIS DNA NEGATIVE (NEGATIVE)
== END 2021-03-02 23:59 | disposition home or self-care (01) ==
LOC: LAB 08:00
PROVIDERS: ATTEND Obstetrics & Gynecology
DX: Z11.3 Encounter for screening for infections with a predominantly sexual mode of transmission (principal)
CPT/HCPCS: 87491; 87591; 87661

== ENCOUNTER 2021-03-09 07:11 | Outpatient (CLI) | payer BC ==
[2021-03-09 13:00] LABS: ESTIMATED AVERAGE GLUCOSE 131 mg/dL (70-100); HEMOGLOBIN A1c% 6.2 % (4.27-6.07)
[2021-03-10 14:20] LABS: CREATININE 24 HOUR,URINE 797 mg/24h (600-1800); CREATININE,URINE 24.6 mg/dL; TOTAL PROTEIN,URINE TIMED < 6 mg/dL; TOTAL VOLUME 24HRS,URINE 3240 mL
== END 2021-03-09 23:55 | disposition home or self-care (01) ==
LOC: LAB.WCP 07:11
PROVIDERS: ATTEND Obstetrics & Gynecology
DX: O09.899 Supervision of other high risk pregnancies, unspecified trimester (principal); O24.019 Pre-existing type 1 diabetes mellitus, in pregnancy, unspecified trimester; E10.9 Type 1 diabetes mellitus without complications
CPT/HCPCS: 36415; 82570; 83036; 84156

== ENCOUNTER 2021-03-29 11:18 | Outpatient (CLI) | payer BC ==
[2021-03-29 12:14] LABS: THYROID STIMULATING HORMONE 1.36 uIU/mL (0.34-5.60)
[2021-03-29 12:16] LABS: FREE T4 (FREE THYROXINE) 0.97 ng/dL (0.58-1.64)
[2021-03-29 12:53] LABS: ESTIMATED AVERAGE GLUCOSE 114 mg/dL (70-100); HEMOGLOBIN A1c% 5.6 % (4.27-6.07)
[2021-03-31 03:36] LABS: AGE RISK DOWN SYNDROME 1 IN 523; CIGARETTE SMOKER? NOT GIVEN; DONOR AGE: EGG RETRIEVAL NOT GIVEN; DONOR EGG NO; ESTRIOL MOM 0.54; HCG MOM 0.34; HX OF NEURAL TUBE DEFECTS NO; INSULIN DEPEND DIABETIC YES; MATERNAL WEIGHT 155 lbs; MSS DOWN SYNDROME RISK <1 IN 5000; NUMBER OF FETUSES 1; PREV PREGNANCY DOWN SYND NO; RISK FOR ONTD NOT CALCULATED
== END 2021-03-29 11:19 | disposition home or self-care (01) ==
LOC: LAB 11:18
PROVIDERS: ATTEND Obstetrics & Gynecology
DX: O24.019 Pre-existing type 1 diabetes mellitus, in pregnancy, unspecified trimester (principal); E10.9 Type 1 diabetes mellitus without complications; O09.899 Supervision of other high risk pregnancies, unspecified trimester; Z13.21 Encounter for screening for nutritional disorder
CPT/HCPCS: 36415; 81511; 82306; 83036; 84439; 84443

== ENCOUNTER 2021-04-19 08:00 | Outpatient (CLI) | payer BC ==
[2021-04-21 16:11] LABS: AFP MOM 0.68; AGE RISK DOWN SYNDROME 1 IN 523; CIGARETTE SMOKER? NOT GIVEN; DONOR AGE: EGG RETRIEVAL NOT GIVEN; DONOR EGG NO; ESTRIOL MOM 1.03; HCG MOM 0.32; HX OF NEURAL TUBE DEFECTS NO; INHIBIN A MOM 0.32; INSULIN DEPEND DIABETIC YES; MATERNAL WEIGHT 155 lbs; MSS DOWN SYNDROME RISK <1 IN 5000; MSS3 TRISOMY 18 RISK 1 IN 1967; NUMBER OF FETUSES 1; PREV PREGNANCY DOWN SYND NO; RISK FOR ONTD <1 IN 5000
== END 2021-04-19 23:59 ==
LOC: LAB.WCP 08:00
PROVIDERS: ATTEND Obstetrics & Gynecology
DX: O09.899 Supervision of other high risk pregnancies, unspecified trimester (principal)
CPT/HCPCS: 36415; 81511; 81599; 82105

== ENCOUNTER 2021-05-10 18:45 | Outpatient (CLI) | payer BC, MEDICAID ==
--- NOTE | 2021-05-11 08:54 | Ultrasound Report ---
PROCEDURE: OB Detailed Eval INDICATIONS: SUPERVISION OF OUTSIDE/PRIOR DATING DATA: Last menstrual period (LMP): 12/21/2020. LMP-based estimated date of delivery (ETHAN): 09/27/2021. First dating scan (date and location): 02/20/2021. Estimated date of delivery (ETHAN) from first dating scan: 09/27/2021. The below data below was generated using the ultrasound ETHAN of 09/27/2021 TECHNIQUE: Real-time scanning was performed of the fetus, with image documentation and biometric measurements. Endovaginal scanning: Performed COMPARISON: 02/20/2021 FINDINGS: General: A single living intrauterine gestation is present. Presentation: Variable Placenta: Placental position is anterior, without previa. Amniotic fluid index: 16.3 cm with normal 5-24 cm. Largest amniotic fluid pocket 4.4 cm heart rate: 145 beats per minute. Maternal cervical canal: Closed and 5.2 cm long; normal length is 2.5 cm or more. biometrics: Biparietal diameter: 20 weeks 0 days Head circumference: 20 weeks 1 day Abdominal circumference: 20 weeks 6 days Femur length: 19 weeks 6 days Estimated gestational age from initial scan: 20 weeks 0 days. Composite gestational age from present scan: 20 weeks 0 days Estimated weight and percentile: 150 g; 67th percentile Measurement variability in biometric dating: +/- 10 days from 12-20 weeks gestation, +/- 2 weeks from 20-30 weeks gestation, +/- 3 weeks at 30 weeks gestation or later. Anatomic survey: Neuro: Ventricles are normal at less than 10 mm. Cisterna magna is normal at 3-11 mm. Cerebellum i s normal in size and morphology. Nuchal skin fold: Normal at less than 6 mm between 14 and 20 weeks gestational age. Face: Nose and lips are normal. Facial profile are not well seen. Spine: Incompletely visualized due to position. Heart: 4-chambered heart is present, with normal ventricular outflow tracts. Diaphragm: Diaphragm is intact. Stomach: Left-sided stomach is present. Kidneys: No hydronephrosis. Normal is less than 5 mm in 2nd trimester, less than 7 mm in 3rd trimester. Cord: 3 vessel cord has orthotopic insertion. Bladder: Normal in size. Extremities: All 4 extremities are visualized. IMPRESSION: 1. Single living intrauterine with appropriate interval growth. 2. Normal amniotic fluid index. 3. Poorly visualized facial profile and spine due to positioning. Recommend follow- up limited ultrasound in 2 weeks if clinically indicated. Otherwise, normal anatomic surv ey. Reviewed by: Eloisa Pierson MD, PhD on 05/11/2021 8:53 AM PST Approved by: Eloisa Pierson MD, PhD on 05/11/2021 8:53 AM PST Station ID: [id number]
== END 2021-05-10 18:46 | disposition home or self-care (01) ==
LOC: DI 18:45
PROVIDERS: ATTEND Obstetrics & Gynecology
DX: O09.892 Supervision of other high risk pregnancies, second trimester (principal); Z3A.20 20 weeks gestation of pregnancy

== ENCOUNTER 2021-05-30 08:00 | Outpatient (CLI) | payer MEDICAID ==
[2021-05-30 12:03] LABS: BASOPHILS # (AUTO) 0.1 10^3/uL (0.0-0.1); EOSINOPHILS % (AUTO) 0.4 %; HCT - HEMATOCRIT 32.5 % (37.0-47.0); HGB - HEMOGLOBIN 11.1 g/dL (12.0-16.0); MEAN CORPUSCULAR HEMOGLOBIN 31.6 pg (27.0-31.0); MEAN CORPUSCULAR HGB CONC 34.2 g/dL (32.0-36.0); MEAN CORPUSCULAR VOLUME 92.6 fL (81.0-99.0); MEAN PLATELET VOLUME 11.6 fL (7.9-10.8); MONOCYTES # (AUTO) 0.2 10^3/uL (0.0-1.0); MONOCYTES % (AUTO) 4.6 %; NEUTROPHILS # (AUTO) 3.6 10^3/uL (1.5-6.6); NEUTROPHILS % (AUTO) 72.8 %; PLT - PLATELET COUNT 171 10^3/uL (130-450); RED BLOOD COUNT 3.51 10^6/uL (4.20-5.40); RED CELL DISTRIBUTION WIDTH 12.9 % (12.0-15.0)
[2021-05-30 12:16] LABS: ESTIMATED AVERAGE GLUCOSE 94 mg/dL (70-100); HEMOGLOBIN A1c% 4.9 % (4.27-6.07)
[2021-05-30 12:29] LABS: THYROID STIMULATING HORMONE 1.29 uIU/mL (0.34-5.60)
[2021-05-30 12:35] LABS: FERRITIN 9.5 ng/mL (11.0-306.8)
[2021-05-30 12:36] LABS: ALBUMIN 3.3 g/dL (3.2-5.5); ALKALINE PHOSPHATASE 31 IU/L (42-121); ALT ALANINE AMINOTRANSFERASE 12 IU/L (10-60); AST ASPARTATE AMINOTRANSFERASE 15 IU/L (10-42); BILIRUBIN,TOTAL 0.7 mg/dL (0.2-1.0); BUN - BLOOD UREA NITROGEN 9 mg/dL (6-20); CALCIUM 8.7 mg/dL (8.5-10.3); CARBON DIOXIDE - CO2 23 mmol/L (21-32); CHLORIDE 105 mmol/L (101-111); CHOL/HDL RATIO 3.4 (<4.4); CHOLESTEROL 225 mg/dL; CREATININE 0.4 mg/dL (0.4-1.0); GFR - MDRD 185 (>89); GLUCOSE 128 mg/dL (70-100); HDL CHOLESTEROL 66 mg/dL; LDL CHOLESTEROL,CALCULATED 136 mg/dL; LDL/HDL RATIO 2.1 (<4.4); POTASSIUM 3.8 mmol/L (3.5-5.0); SODIUM 133 mmol/L (135-145); TOTAL PROTEIN 6.7 g/dL (6.7-8.2); TRIGLYCERIDES 113 mg/dL; VLDL CHOLESTEROL 23 mg/dL
[2021-05-30 13:42] LABS: CREATININE,URINE < 13.0 mg/dL
[2021-05-30 13:43] LABS: MICROALBUMIN,URINE < 0.2 mg/dL (0-300.0)
== END 2021-05-30 23:59 ==
LOC: LAB.WCP 08:00
PROVIDERS: ATTEND Family Medicine
DX: O24.019 Pre-existing type 1 diabetes mellitus, in pregnancy, unspecified trimester (principal); E10.9 Type 1 diabetes mellitus without complications; O09.899 Supervision of other high risk pregnancies, unspecified trimester; Z13.21 Encounter for screening for nutritional disorder
CPT/HCPCS: 36415; 80050; 80061; 82043; 82306; 82570; 82728; 83036; 83721

== ENCOUNTER 2021-06-07 17:01 | Outpatient (CLI) | payer MEDICAID ==
--- NOTE | 2021-06-07 19:12 | Ultrasound Report ---
PROCEDURE: OB F/U or Repeat INDICATIONS: SUPERVISION HIGH RISK , DIABETES TYPE 1 OUTSIDE/PRIOR DATING DATA: Last menstrual period (LMP): 12/21/2020. LMP-based estimated date of delivery (ETHAN): 09/27/2021. First dating scan (date and location): 02/20/2021. Estimated date of delivery (ETHAN) from first dating scan: 09/27/2021. The below data below was generated using the ultrasound derived ETHAN of 09/27/2021 TECHNIQUE: Real-time scanning was performed of the fetus, with image documentation and biometric measurements. Endovaginal scanning: Not performed COMPARISON: 02/20/2021, 05/10/2021 FINDINGS: General: A single living intrauterine gestation is present. Presentation: Transverse, head to maternal left Placenta: Placental position is anterior, without previa. Amniotic fluid index: 19.1 cm, 5.4 cm is single deepest vertical pocket. heart rate: 138 beats per minute. Maternal cervical canal: Closed and 4.4 cm long; normal length is 2.5 cm or more. biometrics: Biparietal diameter: 5.9 cm, 24 weeks, 0 days Head circumference: 22.3 cm, 24 weeks, 2 days Abdominal circumference: 20.6 cm, 25 weeks, 1 day Femur length: 4.3 cm, 24 weeks, 1 day Estimated gestational age from initial scan: 24 weeks, 0 days. Composite gestational age from present scan: 24 weeks, 3 days Estimated weight and percentile: 719 g, 72 percentile Facial profile of the fetus and sagittal spine images were seen and appear normal. IMPRESSION: 1. Single living intrauterine with appropriate growth since the prior study. 2. Completion of the anatomic survey with visualization of normal facial profile and spin e. Reviewed by: Lyssa Rosas MD on 06/07/2021 7:11 PM PST Approved by: Lyssa Rosas MD on 06/07/2021 7:11 PM PST Station ID: [id number]
== END 2021-06-07 17:02 | disposition home or self-care (01) ==
LOC: DI 17:01
PROVIDERS: ATTEND Obstetrics & Gynecology
DX: O09.892 Supervision of other high risk pregnancies, second trimester (principal); O24.012 Pre-existing type 1 diabetes mellitus, in pregnancy, second trimester; E10.9 Type 1 diabetes mellitus without complications; Z3A.24 24 weeks gestation of pregnancy

== ENCOUNTER 2021-07-06 13:33 | Outpatient (CLI) | payer MEDICAID ==
[2021-07-06 14:33] LABS: HGB - HEMOGLOBIN 11.4 g/dL (12.0-16.0); MEAN CORPUSCULAR HEMOGLOBIN 31.8 pg (27.0-31.0); MEAN CORPUSCULAR HGB CONC 34.5 g/dL (32.0-36.0); MEAN CORPUSCULAR VOLUME 92.2 fL (81.0-99.0); MEAN PLATELET VOLUME 10.8 fL (7.9-10.8); RED BLOOD COUNT 3.58 10^6/uL (4.20-5.40); RED CELL DISTRIBUTION WIDTH 13.1 % (12.0-15.0); WHITE BLOOD COUNT 7.1 x10^3/uL (4.8-10.8)
[2021-07-06 15:07] LABS: THYROID STIMULATING HORMONE 1.45 uIU/mL (0.34-5.60)
--- NOTE | 2021-07-06 16:25 | Ultrasound Report ---
PROCEDURE: OB F/U or Repeat INDICATIONS: SUPERVISION HIGH RISK , DIABETES TYPE 1 OUTSIDE/PRIOR DATING DATA: Last menstrual period (LMP): 12/21/2020. LMP-based estimated date of delivery (ETHAN): 09/27/2021. First dating scan (date and location): 02/20/2021. Estimated date of delivery (ETHAN) from first dating scan: 09/27/2021.. TECHNIQUE: Real-time scanning was performed of the fetus, with image documentation and biometric measurements. Endovaginal scanning: Not indicated COMPARISON: 06/07/2021, 05/10/2021, 02/20/2021. FINDINGS: General: A single living intrauterine gestation is present. Presentation: Vertex Placenta: Placental position is anterior, without previa. Amniotic fluid index: 21.6 cm, 6.8 for gestational age. heart rate: 148 beats per minute. Maternal cervical canal: 6.6 cm long; normal length is 2.5 cm or more. biometrics: Biparietal diameter: 6.88 cm, 27 weeks, 5 days Head circumference: 26.13 cm, 28 weeks, 3 days Abdominal circumference: 24.19 cm, 28 weeks, 3 days Femur length: 5.30 cm, 28 weeks, 1 day Estimated gestational age from initial scan: 28 weeks, 1 day Composite gestational age from present scan: 28 weeks, 1 day Estimated weight and percentile: 1206 g, 43% Measurement variability in biometric dating: +/- 10 days from 12-20 weeks gestation, +/- 2 weeks from 20-30 weeks gestation, +/- 3 weeks at 30 weeks gestation or more. Other: chest, stomach, bilateral kidneys and urinary bladder are visualized and are within norm al limits. IMPRESSION: 1. Single live intrauterine gestation with fetus in vertex presentation. heart rate is 148 bpm. Normal amount of amniotic fluid. Normal growth. Estimated weight is at 43%. Reviewed by: Sourav Perez MD on 07/06/2021 4:23 PM PST Approved by: Sourav Perez MD on 07/06/2021 4:23 PM PST Station ID: [id number]
[2021-07-06 19:51] LABS: ESTIMATED AVERAGE GLUCOSE 97 mg/dL (70-100)
== END 2021-07-06 13:34 | disposition home or self-care (01) ==
LOC: DI 13:33
PROVIDERS: ATTEND Obstetrics & Gynecology
DX: O09.893 Supervision of other high risk pregnancies, third trimester (principal); O24.013 Pre-existing type 1 diabetes mellitus, in pregnancy, third trimester; Z3A.28 28 weeks gestation of pregnancy
CPT/HCPCS: 36415; 83036; 84443; 85027

== ENCOUNTER 2021-07-26 12:34 | Outpatient (CLI) | payer MEDICAID ==
--- NOTE | 2021-07-26 16:34 | Ultrasound Report ---
PROCEDURE: OB Limited INDICATIONS: TYPE 1 DIABETES OUTSIDE/PRIOR DATING DATA: Last menstrual period (LMP): 12/21/2020. LMP-based estimated date of delivery (ETHAN): 09/27/2021. First dating scan (date and location): 02/20/2021. Estimated date of delivery (ETHAN) from first dating scan: . The below data below was generated using the ultrasound ETHAN of 09/27/2021 TECHNIQUE: Real-time scanning was performed of the fetus, with image documentation. Endovaginal scanning: Performed COMPARISON: 02/20/2021, 06/07/2021 and 07/06/2021 FINDINGS: A single living intrauterine gestation is present. Presentation: Vertex Placenta: Placental position is anterior, without previa. Amniotic fluid index: 17.7 cm, normal 5-24 cm. Largest pocket 5.7 cm. heart rate: 132 beats per minutes. Maternal cervical canal: 4.6 cm long; normal length is 2.5 cm or more. Estimated gestational age from initial scan: 31 weeks 0 days. IMPRESSION: 1. Single living intrauterine ring seen. 2. Normal amniotic fluid index. Reviewed by: Eloisa Pierson MD, PhD on 07/26/2021 4:33 PM PST Approved by: Eloisa Pierson MD, PhD on 07/26/2021 4:33 PM PST Station ID: [id number]
== END 2021-07-26 12:35 | disposition home or self-care (01) ==
LOC: DI 12:34
PROVIDERS: ATTEND Obstetrics & Gynecology
DX: O09.93 Supervision of high risk pregnancy, unspecified, third trimester (principal); Z3A.31 31 weeks gestation of pregnancy; O24.913 Unspecified diabetes mellitus in pregnancy, third trimester

== ENCOUNTER 2021-07-31 09:22 | Outpatient (CLI) | payer MEDICAID ==
[2021-07-31 09:42] VITALS: BP 124/77
--- NOTE | 2021-07-31 12:46 | PROCEDURE REPORT ---
- HPI Diagnosis/Indication for NST: Other (Type 1 diabetes) Current EDU 09/27/21 Gestation 31 Weeks and 5 Days 4 Para 1 Vital Signs Temperature 98.2 F 07/31/21 09:35 Heart Rate 75 07/31/21 09:35 Respiratory Rate 16 07/31/21 09:35 Blood Pressure 124/77 07/31/21 09:35 Temperature 98.2 F 07/31/21 09:35 Heart Rate 75 07/31/21 09:35 Respiratory Rate 16 07/31/21 09:35 Blood Pressure 124/77 07/31/21 09:35 O2 Saturation - NST Procedure NST Procedure Start Date 07/31/21 Start Time 09:30 Stop Time 10:00 Vibroacoustic Stimulation Used No Patient States Movement Yes - Results and Plan Findings/Impression: heart rate baseline-130 beats per minutes Moderate variability Accelerations 15x15 BPM Decelerations none Contractions-rare irritability noted NST reactive and reassuring
== END 2021-07-31 10:10 | disposition home or self-care (01) ==
LOC: WFO 09:22 → FBP 09:25 → WFO 10:10
PROVIDERS: ATTEND Obstetrics & Gynecology
DX: O24.013 Pre-existing type 1 diabetes mellitus, in pregnancy, third trimester (principal); O09.893 Supervision of other high risk pregnancies, third trimester; Z3A.31 31 weeks gestation of pregnancy
CPT/HCPCS: 59025

== ENCOUNTER 2021-08-02 13:48 | Outpatient (CLI) | payer MEDICAID ==
--- NOTE | 2021-08-02 16:53 | Ultrasound Report ---
PROCEDURE: OB F/U or Repeat INDICATIONS: SUPERVISION HIGH RISK , DIABETES TYPE 1 OUTSIDE/PRIOR DATING DATA: Last menstrual period (LMP): 12/21/2020. LMP-based estimated date of delivery (ETHAN): 09/27/2021. First dating scan (date and location): 02/20/2021. Estimated date of delivery (ETHAN) from first dating scan: 09/27/2021. The below data below was generated using the sonographic ETHAN of 09/27/2021 TECHNIQUE: Real-time scanning was performed of the fetus, with image documentation and biometric measurements. Endovaginal scanning: Not performed COMPARISON: 07/26/2021 FINDINGS: General: A single living intrauterine gestation is present. Presentation: Breech Placenta: Placental position is anterior, without previa. Amniotic fluid index: 15.6 cm, largest vertical pocket measured 5.3 cm. heart rate: 137 beats per minute. Maternal cervical canal: 4.1 cm long; normal length is 2.5 cm or more. Cervix appears closed. No fu nneling. biometrics: Biparietal diameter: 8.24 cm, correlating with 33 weeks and 1 day Head circumference: 30.95 cm, correlating with 34 weeks and 4 days Abdominal circumference: 29.55 cm, correlating with 33 weeks and 4 days Femur length: 6.11 cm, correlating with 31 weeks and 5 days Estimated gestational age from initial scan: 32 weeks and 0 days. Composite gestational age from present scan: 33 weeks and 2 days Estimated weight and percentile: 2115 g which correlates with the 74th percentile for gestation al age. Measurement variability in biometric dating: +/- 10 days from 12-20 weeks gestation, +/- 2 weeks from 20-30 weeks gestation, +/- 3 weeks at 30 weeks gestation or more. Other: Limited visualized anatomic structures are unremarkable. IMPRESSION: Single living intrauterine gestation with estimated sonographic gestational age of approximately 33 w eeks and 2 days. Expected interval growth has occurred. Estimated weight is approximately 2115 g which [address] the fetus within the 74th percentile based off gestational age. Four-quadrant INDA measures 15.6 cm with largest vertical pocket measuring 5.3 cm. Reviewed by: Toni Sampson MD on 08/02/2021 4:52 PM PDT Approved by: Toni Sampson MD on 08/02/2021 4:52 PM PDT Station ID: [id number]
== END 2021-08-02 13:49 | disposition home or self-care (01) ==
LOC: DI 13:48
PROVIDERS: ATTEND Obstetrics & Gynecology
DX: O09.93 Supervision of high risk pregnancy, unspecified, third trimester (principal); Z3A.33 33 weeks gestation of pregnancy; O24.913 Unspecified diabetes mellitus in pregnancy, third trimester

== ENCOUNTER 2021-08-03 17:12 | Outpatient (CLI) | payer MEDICAID ==
[2021-08-03 17:21] VITALS: BP 122/81
--- NOTE | 2021-08-06 12:36 | PROCEDURE REPORT ---
- HPI Diagnosis/Indication for NST: Pre- Diabetes Current EDU 09/27/21 Gestation 32 Weeks and 1 Days 4 Para 1 Vital Signs Temperature 98.2 F 08/03/21 17:20 Heart Rate 75 08/03/21 17:20 Respiratory Rate 18 08/03/21 17:20 Blood Pressure 122/81 H 08/03/21 17:20 O2 Saturation 100 08/03/21 17:20 Temperature 98.2 F 08/03/21 17:21 Heart Rate 75 08/03/21 17:20 Respiratory Rate 18 08/03/21 17:20 Blood Pressure 122/81 H 08/03/21 17:20 O2 Saturation 100 08/03/21 17:20 - NST Procedure NST Procedure Start Date 08/03/21 Start Time 17:18 Stop Time 17:40 Vibroacoustic Stimulation Used No Patient States Movement Yes EFM 135 mod daphnie 15x15 accels no decels TOCO: quiet - Results and Plan Findings/Impression: 31 yo at 32+1 wga with Type I DM here for NST Cat I tracing Cont with twice weekly NST and weekly NIDA Plan to deliver at [facility] DOS: 08/03/21 NST read 08/03/21 DX: IUP at 32+1 wga Type I DM
== END 2021-08-03 17:45 | disposition home or self-care (01) ==
LOC: WFO 17:12 → FBP 17:13 → WFO 17:45
PROVIDERS: ATTEND Obstetrics & Gynecology
DX: O24.013 Pre-existing type 1 diabetes mellitus, in pregnancy, third trimester (principal); Z3A.32 32 weeks gestation of pregnancy; O09.893 Supervision of other high risk pregnancies, third trimester
CPT/HCPCS: 59025

== ENCOUNTER 2021-08-09 10:14 | Outpatient (CLI) | payer MEDICAID ==
--- NOTE | 2021-08-09 17:03 | Ultrasound Report ---
PROCEDURE: OB Limited INDICATIONS: TYPE 1 DIABETES OUTSIDE/PRIOR DATING DATA: Last menstrual period (LMP): 12/21/2020. LMP-based estimated date of delivery (ETHAN): 09/27/2021. First dating scan (date and location): 02/20/2011 21. Estimated date of delivery (ETHAN) from first dating scan: 09/27/2021. The below data below was generated using the ultrasound ETHAN of 09/27/2021. TECHNIQUE: Real-time scanning was performed of the fetus, with image documentation. Endovaginal scanning: Performed cephalic COMPARISON: None. FINDINGS: A single living intrauterine gestation is present. Presentation: Cephalic Placenta: Placental position is anterior, without previa. Amniotic fluid index: 21.8 cm, normal 5-24 cm. Largest amniotic fluid pocket 0.6 cm heart rate: 140 beats per minutes. Maternal cervical canal: Closed and 5.4 cm long; normal length is 2.5 cm or more. Estimated gestational age from initial scan: 33 weeks 0 days. IMPRESSION: 1. Single living intrauterine . 2. Normal amniotic fluid index. NIDA measures 21.8 cm. Reviewed by: Eloisa Pierson MD, PhD on 08/09/2021 5:01 PM PDT Approved by: Eloisa Pierson MD, PhD on 08/09/2021 5:01 PM PDT Station ID: [id number]
== END 2021-08-09 10:15 | disposition home or self-care (01) ==
LOC: DI 10:14
PROVIDERS: ATTEND Obstetrics & Gynecology
DX: O09.899 Supervision of other high risk pregnancies, unspecified trimester (principal); O24.013 Pre-existing type 1 diabetes mellitus, in pregnancy, third trimester; Z3A.33 33 weeks gestation of pregnancy

== ENCOUNTER 2021-08-09 11:21 | Outpatient (CLI) | payer MEDICAID ==
[2021-08-09 11:39] LABS: ESTIMATED AVERAGE GLUCOSE 100 mg/dL (70-100); HEMOGLOBIN A1c% 5.1 % (4.27-6.07)
[2021-08-09 11:41] LABS: HCT - HEMATOCRIT 33.8 % (37.0-47.0); HGB - HEMOGLOBIN 11.6 g/dL (12.0-16.0); MEAN CORPUSCULAR HGB CONC 34.3 g/dL (32.0-36.0); MEAN CORPUSCULAR VOLUME 93.1 fL (81.0-99.0); MEAN PLATELET VOLUME 11.2 fL (7.9-10.8); RED BLOOD COUNT 3.63 10^6/uL (4.20-5.40); RED CELL DISTRIBUTION WIDTH 13.5 % (12.0-15.0)
[2021-08-09 12:30] LABS: THYROID STIMULATING HORMONE 1.34 uIU/mL (0.34-5.60)
== END 2021-08-09 11:22 | disposition home or self-care (01) ==
LOC: LAB 11:21
PROVIDERS: ATTEND Obstetrics & Gynecology
DX: O24.019 Pre-existing type 1 diabetes mellitus, in pregnancy, unspecified trimester (principal); E10.9 Type 1 diabetes mellitus without complications; O09.899 Supervision of other high risk pregnancies, unspecified trimester
CPT/HCPCS: 36415; 83036; 84443; 85027

== ENCOUNTER 2021-08-17 09:16 | Outpatient (CLI) | payer MEDICAID ==
--- NOTE | 2021-08-17 13:18 | Ultrasound Report ---
PROCEDURE: OB Limited INDICATIONS: TYPE 1 DIABETES OUTSIDE/PRIOR DATING DATA: Last menstrual period (LMP): 12/21/2020. LMP-based estimated date of delivery (ETHAN): 09/27/2021. First dating scan (date and location): 02/20/2011 21. Estimated date of delivery (ETHAN) from first dating scan: 09/27/2021. The below data below was generated using the ultrasound ETHAN of 09/27/2021. TECHNIQUE: Real-time scanning was performed of the fetus, with image documentation. COMPARISON: OB ultrasound limited, 08/09/2021. FINDINGS: A single living intrauterine gestation is present. Presentation: Cephalic Placenta: Placental position is anterior, without previa. Amniotic fluid index: 22.5 cm, largest pocket measuring 6.8 cm. heart rate: 152 beats per minutes. Maternal cervical canal: Closed during 3.5 cm long; normal length is 2.5 cm or more. Estimated gestational age from initial scan: 34 weeks 1 day. A 1.8 cm corpus luteal cyst is noted in right ovary. IMPRESSION: 1. A single living intrauterine redemonstrated. 2. NIDA normal at 22.5 cm. Reviewed by: Artie Hood MD on 08/17/2021 1:17 PM PDT Approved by: Artie Hood MD on 08/17/2021 1:17 PM PDT Station ID: [id number]
== END 2021-08-17 09:17 | disposition home or self-care (01) ==
LOC: DI 09:16
PROVIDERS: ATTEND Obstetrics & Gynecology
DX: O24.913 Unspecified diabetes mellitus in pregnancy, third trimester (principal); O09.93 Supervision of high risk pregnancy, unspecified, third trimester; Z3A.34 34 weeks gestation of pregnancy

== ENCOUNTER 2021-08-17 09:50 | Outpatient (CLI) | payer MEDICAID ==
[2021-08-17 11:32] VITALS: BP 108/80
--- NOTE | 2021-08-19 05:33 | PROCEDURE REPORT ---
- HPI Diagnosis/Indication for NST: Pre- Diabetes Current EDU 09/27/21 Gestation 34 Weeks and 1 Days 4 Para 1 Vital Signs Temperature 97.9 F 08/17/21 10:16 Heart Rate 80 08/17/21 10:16 Respiratory Rate 15 08/17/21 10:16 Blood Pressure 108/20 L 08/17/21 10:16 O2 Saturation 100 08/17/21 10:16 Temperature 97.9 F 08/17/21 11:25 Heart Rate 80 08/17/21 11:25 Respiratory Rate 15 08/17/21 11:25 Blood Pressure 108/80 08/17/21 11:25 O2 Saturation 100 08/17/21 10:16 - NST Procedure NST Procedure Start Date 08/17/21 Start Time 10:15 Stop Time 10:35 Vibroacoustic Stimulation Used No Patient States Movement Yes EFM 125 mod daphnie 15x15 accels no decels TOCO: quiet - Results and Plan Findings/Impression: - Results and Plan Findings/Impression: 31 yo at 34+1 wga with Type I DM here for NST Cat I tracing Cont with twice weekly NST and weekly NIDA Plan to deliver at [facility] DOS: 08/17/21 NST read 08/17/21 DX: IUP at 34+1 wga Type I DM
== END 2021-08-17 11:15 | disposition home or self-care (01) ==
LOC: WFO 09:50 → FBP 09:54 → WFO 11:15
PROVIDERS: ATTEND Obstetrics & Gynecology
DX: O24.013 Pre-existing type 1 diabetes mellitus, in pregnancy, third trimester (principal); O09.93 Supervision of high risk pregnancy, unspecified, third trimester; Z3A.34 34 weeks gestation of pregnancy
CPT/HCPCS: 59025

== ENCOUNTER 2021-08-20 13:47 | Outpatient (CLI) | payer MEDICAID ==
[2021-08-20 14:00] VITALS: BP 116/80
--- NOTE | 2021-08-20 16:35 | PROCEDURE REPORT ---
- HPI Diagnosis/Indication for NST: Gestational Diabetes (Type 1DM in third trimester) Current EDU 09/27/21 Gestation 34 Weeks and 4 Days 4 Para 1 Vital Signs Temperature 97.7 F 08/20/21 13:51 Heart Rate 85 08/20/21 13:51 Respiratory Rate 17 08/20/21 13:51 Blood Pressure 116/80 08/20/21 13:51 Temperature 97.7 F 08/20/21 13:58 Heart Rate 73 08/20/21 13:58 Respiratory Rate 17 08/20/21 13:58 Blood Pressure 116/80 08/20/21 13:58 O2 Saturation 100 08/20/21 13:58 - NST Procedure NST Procedure Start Date 08/20/21 Start Time 13:53 Stop Time 14:14 Vibroacoustic Stimulation Used No Patient States Movement Yes EFM: 120s, moderate variability, positive 15x15 accelerations, no decelerations [place]: no contractions NST reactive and reassuring RTC as scheduled for biweekly NSTs - Results and Plan Findings/Impression: 31yo at 34.4w presenting for scheduled NST for T1DM in - NST reactive - Follow up as scheduled for NST and primary OB
== END 2021-08-20 14:18 | disposition home or self-care (01) ==
LOC: WFO 13:47 → FBP 13:49 → WFO 14:18
PROVIDERS: ATTEND Obstetrics & Gynecology
DX: O24.013 Pre-existing type 1 diabetes mellitus, in pregnancy, third trimester (principal); Z3A.34 34 weeks gestation of pregnancy
CPT/HCPCS: 59025

== ENCOUNTER 2021-08-23 09:59 | Outpatient (CLI) | payer MEDICAID ==
[2021-08-23 10:15] VITALS: BP 122/79
--- NOTE | 2021-08-23 11:06 | PROCEDURE REPORT ---
- HPI Diagnosis/Indication for NST: Pre- Diabetes Current EDU 09/27/21 Gestation 35 Weeks and 0 Days 4 Para 1 Vital Signs Temperature 98.5 F 08/23/21 10:12 Temperature 98.5 F 08/23/21 10:13 Heart Rate 77 08/23/21 10:13 Respiratory Rate 16 08/23/21 10:13 Blood Pressure 122/79 08/23/21 10:13 O2 Saturation 100 08/23/21 10:13 - NST Procedure NST Procedure Start Date 08/23/21 Start Time 10:08 Stop Time 10:55 Vibroacoustic Stimulation Used No Patient States Movement Yes - Results and Plan Plan: Patient is a 31-year-old -0-2-1 at 35 weeks 0 days gestation here for scheduled NST for type 1 diabetes in . NST Performed 08/23/2021 NST Read 08/23/2021 FHT: 135 bpm baseline, moderate variability, accelerations present, no decelerations. Did have a questionable drop in heart rate while coming off the monitor, so patient was kept for an additional 20 minutes without issue. [place]: Rare, mild contraction Diagnosis 35 weeks gestation Type I, pre-existing diabetes in Continue with twice weekly NST.
== END 2021-08-23 11:00 | disposition home or self-care (01) ==
LOC: WFO 09:59 → FBP 10:03 → WFO 11:00
PROVIDERS: ATTEND Obstetrics & Gynecology
DX: O24.013 Pre-existing type 1 diabetes mellitus, in pregnancy, third trimester (principal); Z3A.35 35 weeks gestation of pregnancy
CPT/HCPCS: 59025

== ENCOUNTER 2021-08-26 09:55 | Outpatient (CLI) | payer MEDICAID ==
[2021-08-26 10:06] VITALS: BP 125/77
--- NOTE | 2021-08-26 10:29 | PROCEDURE REPORT ---
- HPI Diagnosis/Indication for NST: Pre- Diabetes Vital Signs Temperature 97.7 F 08/26/21 10:06 Heart Rate 77 08/26/21 10:06 Respiratory Rate 16 08/26/21 10:06 Blood Pressure 125/77 08/26/21 10:06 O2 Saturation 100 08/26/21 10:06 Temperature 97.7 F 08/26/21 10:06 Heart Rate 77 08/26/21 10:06 Respiratory Rate 16 08/26/21 10:06 Blood Pressure 125/77 08/26/21 10:06 O2 Saturation 100 08/26/21 10:06 - NST Procedure NST Procedure Start Time 13:53 Stop Time 14:14 Date Performed: 08/26/21 Date Read: 08/26/21 - Results and Plan Findings/Impression: Patient is a 31-year-old -0-2-1 at 35 weeks 3 days gestation here for scheduled NST. FHT: 140 bpm baseline, moderate variability, acceleration present, no decelerations. [place]: 1 contraction, mild, patient does not feel Diagnosis 35 weeks gestation Type I, pre-existing diabetes in Continue with twice weekly NST.
== END 2021-08-26 10:30 | disposition home or self-care (01) ==
LOC: WFO 09:55 → FBP 09:58 → WFO 10:30
PROVIDERS: ATTEND Obstetrics & Gynecology
DX: O24.013 Pre-existing type 1 diabetes mellitus, in pregnancy, third trimester (principal); Z3A.35 35 weeks gestation of pregnancy
CPT/HCPCS: 59025; 99214

== ENCOUNTER 2021-08-30 12:51 | Outpatient (CLI) | payer MEDICAID ==
--- NOTE | 2021-08-30 17:13 | Ultrasound Report ---
PROCEDURE: OB F/U or Repeat INDICATIONS: SUPERVISION HIGH RISK , DIABETES TYPE 1 OUTSIDE/PRIOR DATING DATA: Last menstrual period (LMP): December 21, 2020. LMP-based estimated date of delivery (ETHAN): September 27, 2021. First dating scan (date ): February 20, 2021. Estimated date of delivery (ETHAN) from first dating scan: September 27, 2021. TECHNIQUE: Real-time scanning was performed of the fetus, with image documentation and biometric measurements. COMPARISON: Prior studies dating back to August 17, 2021. FINDINGS: General: A single living intrauterine gestation is present. Presentation: Sessile Placenta: Placental position is anterior, without previa. Amniotic fluid index: 18.3 cm, appropriate for gestational age. heart rate: 136 beats per minute. Maternal cervical canal: 3.8 cm long; normal length is 2.5 cm or more. biometrics: Biparietal diameter: 9.1 cm Head circumference: 32.9 cm Abdominal circumference: 33.6 cm Femur length: 6.8 cm Estimated gestational age from initial scan: 36 week. Composite gestational age from present scan: 36 weeks, 5 days Estimated weight and percentile: 3044 g; 74th percentile Measurement variability in biometric dating: +/- 10 days from 12-20 weeks gestation, +/- 2 weeks from 20-30 weeks gestation, +/- 3 weeks at 30 weeks gestation or more. Other: Not applicable. IMPRESSION: Live single intrauterine gestation as detailed above. Reviewed by: Marvin Jhaveri MD on 08/30/2021 5:11 PM PDT Approved by: Marvin Jhaveri MD on 08/30/2021 5:11 PM PDT Station ID: [id number]
== END 2021-08-30 12:52 | disposition home or self-care (01) ==
LOC: DI 12:51
PROVIDERS: ATTEND Obstetrics & Gynecology
DX: O09.893 Supervision of other high risk pregnancies, third trimester (principal); O99.283 Endocrine, nutritional and metabolic diseases complicating pregnancy, third trimester; E10.9 Type 1 diabetes mellitus without complications; Z3A.35 35 weeks gestation of pregnancy

== ENCOUNTER 2021-08-30 12:54 | Outpatient (CLI) | payer MEDICAID ==
[2021-08-30 13:13] VITALS: BP 124/78
--- NOTE | 2021-08-30 15:33 | PROCEDURE REPORT ---
- HPI Diagnosis/Indication for NST: Pre- Diabetes Current EDU 09/27/21 Gestation 36 Weeks and 0 Days 4 Para 1 Vital Signs Temperature 98.1 F 08/30/21 13:10 Heart Rate 76 08/30/21 13:10 Respiratory Rate 17 08/30/21 13:10 Blood Pressure 124/78 08/30/21 13:10 O2 Saturation 100 08/30/21 13:10 Temperature 98.1 F 08/30/21 13:10 Heart Rate 76 08/30/21 13:10 Respiratory Rate 17 08/30/21 13:10 Blood Pressure 124/78 08/30/21 13:10 O2 Saturation 100 08/30/21 13:10 - NST Procedure NST Procedure Start Date 08/30/21 Start Time 13:15 Stop Time 13:35 Vibroacoustic Stimulation Used No Patient States Movement Yes - Results and Plan Findings/Impression: heart rate baseline-120 beats per minutes Moderate variability Accelerations 15x15 Decelerations none Contractions rare NST reactive and reassuring Plan: Continue scheduled screening.
== END 2021-08-30 13:47 | disposition home or self-care (01) ==
LOC: WFO 12:54 → FBP 12:55 → WFO 13:47
PROVIDERS: ATTEND Obstetrics & Gynecology
DX: O24.013 Pre-existing type 1 diabetes mellitus, in pregnancy, third trimester (principal); O09.893 Supervision of other high risk pregnancies, third trimester; Z3A.36 36 weeks gestation of pregnancy
CPT/HCPCS: 59025

== ENCOUNTER 2021-09-02 09:51 | Outpatient (CLI) | payer MEDICAID ==
[2021-09-02 10:02] VITALS: BP 123/77
--- NOTE | 2021-09-02 10:44 | PROCEDURE REPORT ---
- HPI Diagnosis/Indication for NST: Other (Type 1 diabetes, 36 weeks gestation) Vital Signs Temperature 98.8 F 09/02/21 09:59 Heart Rate 78 09/02/21 09:59 Respiratory Rate 18 09/02/21 09:59 Blood Pressure 123/77 09/02/21 09:59 O2 Saturation 100 09/02/21 09:59 Temperature 98.8 F 09/02/21 10:02 Heart Rate 78 09/02/21 09:59 Respiratory Rate 18 09/02/21 09:59 Blood Pressure 123/77 09/02/21 09:59 O2 Saturation 100 09/02/21 09:59 - NST Procedure NST Procedure Start Time 13:15 Stop Time 13:35 - Results and Plan Findings/Impression: heart rate baseline- 140 beats per minutes Moderate variability Accelerations 15x15 Decelerations none Contractions - none NST reactive and reassuring 31-year-old G4, P1 at 36 weeks 3 days who presents for scheduled NST for history of type 1 diabetes. NST was reactive and reassuring. Kick count precautions. Continue testing.
== END 2021-09-02 10:40 | disposition home or self-care (01) ==
LOC: WFO 09:51 → FBP 10:05 → WFO 10:40
PROVIDERS: ATTEND Obstetrics & Gynecology
DX: O24.013 Pre-existing type 1 diabetes mellitus, in pregnancy, third trimester (principal); Z3A.36 36 weeks gestation of pregnancy
CPT/HCPCS: 59025

== ENCOUNTER 2021-09-06 12:32 | Outpatient (CLI) | payer MEDICAID ==
--- NOTE | 2021-09-06 14:19 | Ultrasound Report ---
PROCEDURE: OB Limited INDICATIONS: TYPE 1 DIABETES OUTSIDE/PRIOR DATING DATA: Last menstrual period (LMP): December 21, 2020.. LMP-based estimated date of delivery (ETHAN): September 27, 2021. First dating scan (date): February 20, 2021. Estimated date of delivery (ETHAN) from first dating scan: September 27, 2021. TECHNIQUE: Real-time scanning was performed of the fetus, with image documentation. COMPARISON: Prior studies dating back to August 09, 2021 FINDINGS: A single living intrauterine gestation is present. Presentation: Cephalic Placenta: Placental position is anterior, without previa. Amniotic fluid index: 16.8 cm, profile for gestational age. heart rate: 136 beats per minutes. Maternal cervical canal: Not imaged. Estimated gestational age from initial scan: 37 weeks. IMPRESSION: Live single intrauterine gestation as detailed above. Reviewed by: Marvin Jhaveri MD on 09/06/2021 2:18 PM PDT Approved by: Marvin Jhaveri MD on 09/06/2021 2:18 PM PDT Station ID: [id number]
== END 2021-09-06 12:33 | disposition home or self-care (01) ==
LOC: DI 12:32
PROVIDERS: ATTEND Obstetrics & Gynecology
DX: O09.893 Supervision of other high risk pregnancies, third trimester (principal); O24.013 Pre-existing type 1 diabetes mellitus, in pregnancy, third trimester; Z3A.37 37 weeks gestation of pregnancy

== ENCOUNTER 2021-09-06 13:20 | Outpatient (CLI) | payer MEDICAID ==
[2021-09-06 13:30] VITALS: BP 126/77
--- NOTE | 2021-09-15 15:52 | PROCEDURE REPORT ---
- HPI Diagnosis/Indication for NST: Pre- Diabetes Current EDU 09/27/21 Gestation 37 Weeks and 0 Days 4 Para 1 Vital Signs Temperature 98.4 F 09/06/21 13:28 Heart Rate 75 09/06/21 13:28 Respiratory Rate 18 09/06/21 13:28 Blood Pressure 126/77 09/06/21 13:28 O2 Saturation 99 09/06/21 13:28 Temperature 98.4 F 09/06/21 13:30 Heart Rate 75 09/06/21 13:28 Respiratory Rate 18 09/06/21 13:28 Blood Pressure 126/77 09/06/21 13:28 O2 Saturation 99 09/06/21 13:28 - NST Procedure NST Procedure Start Date 09/06/21 Start Time 13:25 Stop Time 13:45 Vibroacoustic Stimulation Used Yes Patient States Movement Yes EFM 135 mod daphnie 15x15 accels no decels TOCO: 2 in 20 min, mild - Results and Plan Findings/Impression: 31 yo at 37+0 wga with Type I DM here for NST Cat I tracing Cont with twice weekly NST and weekly NIDA Plan to deliver at [facility] DOS: 09/06/21 NST read 09/06/21 DX: IUP at 37+0 wga Type I DM
== END 2021-09-06 14:00 | disposition home or self-care (01) ==
LOC: WFO 13:20 → FBP 13:23 → WFO 14:00
PROVIDERS: ATTEND Obstetrics & Gynecology
DX: O24.013 Pre-existing type 1 diabetes mellitus, in pregnancy, third trimester (principal); O09.893 Supervision of other high risk pregnancies, third trimester; Z3A.37 37 weeks gestation of pregnancy
CPT/HCPCS: 59025

== ENCOUNTER 2021-09-09 09:51 | Outpatient (CLI) | payer MEDICAID ==
[2021-09-09 10:10] VITALS: BP 111/85
--- NOTE | 2021-09-09 12:28 | PROCEDURE REPORT ---
- HPI Diagnosis/Indication for NST: Pre- Diabetes Current EDU 09/27/21 Gestation 37 Weeks and 3 Days 4 Para 1 Vital Signs Temperature 97.9 F 09/09/21 10:04 Heart Rate 77 09/09/21 10:04 Respiratory Rate 16 09/09/21 10:04 Blood Pressure 111/85 H 09/09/21 10:04 Temperature 97.9 F 09/09/21 10:04 Heart Rate 77 09/09/21 10:04 Respiratory Rate 16 09/09/21 10:04 Blood Pressure 111/85 H 09/09/21 10:04 O2 Saturation - NST Procedure NST Procedure Start Date 09/09/21 Start Time 10:09 Stop Time 10:30 Vibroacoustic Stimulation Used No Patient States Movement Yes - Results and Plan Plan: Patient is a 31-year-old -0-3-1 at 37 weeks 3 days gestation here for scheduled NST. NST Performed 09/09/2021 NST Read 09/09/2021 FHT: 135 bpm baseline, moderate variability, accelerations present, no decelerations. [place]: Quiescent Diagnosis 37 weeks gestation Type 1 diabetes Continue with twice weekly NST.
== END 2021-09-09 10:40 | disposition home or self-care (01) ==
LOC: WFO 09:51 → FBP 09:52 → WFO 10:40
PROVIDERS: ATTEND Obstetrics & Gynecology
DX: O24.013 Pre-existing type 1 diabetes mellitus, in pregnancy, third trimester (principal); Z3A.37 37 weeks gestation of pregnancy
CPT/HCPCS: 59025

== ENCOUNTER 2021-09-13 10:14 | Outpatient (CLI) | payer MEDICAID ==
--- NOTE | 2021-09-13 13:20 | Ultrasound Report ---
PROCEDURE: OB Limited INDICATIONS: TYPE 1 DIABETES OUTSIDE/PRIOR DATING DATA: Last menstrual period (LMP): 12/21/2020. LMP-based estimated date of delivery (ETHAN): 09/27/2021. First dating scan (date and location): 02/20/2021. Estimated date of delivery (ETHAN) from first dating scan: 09/27/2021. The below data below was generated using the ultrasound ETHAN of 09/27/2021 TECHNIQUE: Real-time scanning was performed of the fetus, with image documentation. Endovaginal scanning: Not performed COMPARISON: 09/06/2021 FINDINGS: A single living intrauterine gestation is present. Presentation: Transverse with head to maternal right Placenta: Placental position is anterior, without previa. Amniotic fluid index: 17.2 cm, within normal limits for gestational age. Largest pocket, 5.6 cm. heart rate: 138 beats per minutes. Maternal cervical canal: 4.2 cm long; normal length is 2.5 cm or more. Estimated gestational age from initial scan: 38 weeks 0 days. IMPRESSION: 1. Living late third trimester intrauterine with no sonographic evidence of complications. 2. Normal NIDA. Reviewed by: Markus Solano MD on 09/13/2021 1:19 PM PDT Approved by: Markus Solano MD on 09/13/2021 1:19 PM PDT Station ID: [id number]
== END 2021-09-13 10:15 | disposition home or self-care (01) ==
LOC: DI 10:14
PROVIDERS: ATTEND Obstetrics & Gynecology
DX: O09.893 Supervision of other high risk pregnancies, third trimester (principal); O24.013 Pre-existing type 1 diabetes mellitus, in pregnancy, third trimester; Z3A.38 38 weeks gestation of pregnancy

== ENCOUNTER 2021-09-13 10:42 | Outpatient (CLI) | payer MEDICAID ==
[2021-09-13 10:58] VITALS: BP 124/80
--- NOTE | 2021-09-15 17:20 | PROCEDURE REPORT ---
- HPI Diagnosis/Indication for NST: Pre- Diabetes Current EDU 09/27/21 Gestation 38 Weeks and 0 Days 4 Para 1 Vital Signs Temperature 98.1 F 09/13/21 10:53 Heart Rate 68 09/13/21 10:53 Respiratory Rate 16 09/13/21 10:53 Blood Pressure 124/80 09/13/21 10:53 Temperature 98.1 F 09/13/21 10:53 Heart Rate 68 09/13/21 10:53 Respiratory Rate 16 09/13/21 10:53 Blood Pressure 124/80 09/13/21 10:53 O2 Saturation - NST Procedure NST Procedure Start Date 09/13/21 Start Time 10:50 Stop Time 11:15 Vibroacoustic Stimulation Used No Patient States Movement Yes EFM 145 mod daphnie 15x15 accels no decels TOCO: intermittent - Results and Plan Plan: 31 yo at 38+0 wga with Type I DM here for NST Cat I tracing Cont with twice weekly NST and weekly NIDA Plan to deliver at [facility] DOS: 09/13/21 NST read 09/13/21 DX: IUP at 38+0 wga Type I DM
== END 2021-09-13 11:25 | disposition home or self-care (01) ==
LOC: WFO 10:42 → FBP 10:43 → WFO 11:25
PROVIDERS: ATTEND Obstetrics & Gynecology
DX: O24.013 Pre-existing type 1 diabetes mellitus, in pregnancy, third trimester (principal); Z3A.38 38 weeks gestation of pregnancy
CPT/HCPCS: 59025

== ENCOUNTER 2022-09-03 07:32 | Outpatient (CLI) | payer MEDICAID ==
[2022-09-03 12:00] LABS: BASOPHILS # (AUTO) 0.1 10^3/uL (0.0-0.1); BASOPHILS % (AUTO) 1.4 %; EOSINOPHILS # (AUTO) 0.1 10^3/uL (0.0-0.7); EOSINOPHILS % (AUTO) 1.3 %; HCT - HEMATOCRIT 41.1 % (37.0-47.0); HGB - HEMOGLOBIN 13.6 g/dL (12.0-16.0); LYMPHOCYTES # (AUTO) 1.6 10^3/uL (1.5-3.5); LYMPHOCYTES % (AUTO) 25.6 %; MEAN CORPUSCULAR HEMOGLOBIN 30.4 pg (27.0-31.0); MEAN CORPUSCULAR HGB CONC 33.1 g/dL (32.0-36.0); MEAN CORPUSCULAR VOLUME 91.7 fL (81.0-99.0); MEAN PLATELET VOLUME 10.8 fL (7.9-10.8); MONOCYTES # (AUTO) 0.3 10^3/uL (0.0-1.0); MONOCYTES % (AUTO) 5.5 %; NEUTROPHILS # (AUTO) 4.1 10^3/uL (1.5-6.6); PLT - PLATELET COUNT 250 10^3/uL (130-450); RED BLOOD COUNT 4.48 10^6/uL (4.20-5.40); RED CELL DISTRIBUTION WIDTH 12.3 % (12.0-15.0); WHITE BLOOD COUNT 6.2 x10^3/uL (4.8-10.8)
[2022-09-03 12:57] LABS: ALBUMIN 4.3 g/dL (3.2-5.5); ALBUMIN/GLOBULIN RATIO 1.3 (1.0-2.2); ALKALINE PHOSPHATASE 51 IU/L (42-121); ALT ALANINE AMINOTRANSFERASE 12 IU/L (10-60); AST ASPARTATE AMINOTRANSFERASE 14 IU/L (10-42); BILIRUBIN,TOTAL 1.1 mg/dL (0.2-1.0); BUN - BLOOD UREA NITROGEN 16 mg/dL (6-20); CALCIUM 8.9 mg/dL (8.5-10.3); CARBON DIOXIDE - CO2 28 mmol/L (21-32); CHLORIDE 104 mmol/L (101-111); CHOL/HDL RATIO 2.6 (<4.4); CHOLESTEROL 176 mg/dL; CREATININE 0.5 mg/dL (0.4-1.0); GFR - MDRD 142 (>89); GLUCOSE 107 mg/dL (70-100); HDL CHOLESTEROL 67 mg/dL; LDL CHOLESTEROL,CALCULATED 100 mg/dL; LDL/HDL RATIO 1.5 (<4.4); POTASSIUM 4.1 mmol/L (3.5-5.0); SODIUM 137 mmol/L (135-145); TOTAL PROTEIN 7.6 g/dL (6.7-8.2); TRIGLYCERIDES 46 mg/dL; VLDL CHOLESTEROL 9 mg/dL
[2022-09-03 13:08] LABS: THYROID STIMULATING HORMONE 0.97 uIU/mL (0.34-5.60)
[2022-09-03 13:37] LABS: CREATININE,URINE 71.2 mg/dL
[2022-09-03 13:38] LABS: MICROALBUMIN,URINE < 0.2 mg/dL (0-300.0)
[2022-09-03 14:21] LABS: ESTIMATED AVERAGE GLUCOSE 137 mg/dL (70-100); HEMOGLOBIN A1c% 6.4 % (4.27-6.07)
== END 2022-09-03 07:33 | disposition home or self-care (01) ==
LOC: LAB.N 07:32
PROVIDERS: ATTEND Nurse Practitioner
DX: E10.9 Type 1 diabetes mellitus without complications (principal); E78.5 Hyperlipidemia, unspecified; R53.83 Other fatigue
CPT/HCPCS: 36415; 80050; 80061; 82043; 82570; 83036; 83721